=== PATIENT | male | born 1970 | race Caucasian/White ===

== ENCOUNTER 2019-07-07 00:55 | Emergency (ER) | payer OTHER, SELFPAY ==
[2019-07-07 00:55] VITALS: BP 139/79; PULSE 98; RESP 18; TEMP 36.7; O2SAT 98
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
[2019-07-07 06:42] VITALS: BP 102/64; PULSE 95; RESP 17; TEMP 36.7; O2SAT 96
== END 2019-07-07 06:45 | disposition home or self-care (01) ==
PROVIDERS: Emergency Provider Emergency Medicine; PCP Specialist/Technologist Athletic Trainer
DX: S00.81XA Abrasion of other part of head, initial encounter (principal); F10.120 Alcohol abuse with intoxication, uncomplicated; V48.5XXA Car driver injured in noncollision transport accident in traffic accident, initial encounter; F12.10 Cannabis abuse, uncomplicated
CPT/HCPCS: 99285; 99283

== ENCOUNTER 2021-11-03 07:24 | Emergency (ER) | payer BC, SELFPAY ==
[2021-11-03 07:29] VITALS: BP 182/73; PULSE 106; RESP 18; O2SAT 96
--- NOTE | 2021-11-03 08:02 | ED.GENADUL_ITS ---
Discharge Plan Disposition Patient Disposition: HOME Condition: Stable Discharge Details Clinical Impression: Weakness of proximal end of lower extremity, Paresthesia of both lower extremities Primary Care Provider: Lior Cruz ED Provider: Miranda Reynoso Home Meds and New Rx's Prescriptions: No Action No Known Home Meds 0RF Discharge Instructions Instructions: Paresthesia (ED), Lumbar Radiculopathy (ED) Additional Instructions: The MRI of your brain today showed no evidence of acute concerning findings. The MRI of your cervical spine and lower back noted degenerative changes or arthritis. There was very minimal disc bulge in your lower back but it is unclear if this is the source of your symptoms at this time. You have been placed on care management list to arrange for a follow-up appointment with the neurologist Dr. Leach within the next week for further evaluation and additional testing of your symptoms. Drink plenty of fluids and get plenty of rest. Return immediately to the emergency department if you develop any worsening or new concerning symptoms. Referrals: Bertha Leach MD [ [facility] STAFF PHYSICIAN] - Discharge Data Discharge Physician: Miranda Reynoso Medical Decision Making 0950 -- 51-year-old male with a history of daily alcohol abuse for many years presents with bilateral thigh weakness, numbness and feeling off balance for the past month. Blood pressure hypertensive. He is afebrile and otherwise nontoxic-appearing. Cranial nerves intact bilaterally. No perceived focal deficits. He does appear to have a mildly ataxic gait when ambulating. Neurovascularly intact. No midline spinal tenderness without evidence of cellulitis or trauma to back. No other cauda equina symptoms. History and presentation does not appear consistent with epidural abscess or cauda equina syndrome. Differential diagnosis includes MS, CVA, polymyositis, encephalopathy related to alcohol use, rheumatologic disease, inflammatory versus infectious process. We will place an IV, bolus IV fluids, screening labs, MRI brain and cervical spine. 1145 --MRI brain and cervical spine essentially unremarkable other than degenerative changes in the neck. Patient reassessed and no other acute changes. Discussed with radiology and agree with plan for MRI lumbar spine. Labs reviewed and unremarkable. Normal white blood cell count, electrolytes, ESR, CRP and CK. Discussed with Dr. Leach who agrees with plan for MRI lumbar spine and will follow up with patient in the office next week. He likely needs a nerve conduction study. No recommendations for steroids at this time as that can worsen myopathy. 1345 --lumbar spine MRI notes mild spinal stenosis at L4-5 with small disc bulge at L5-S1 but no other acute findings. Patient informed of results. He has no other acute complaints. Patient placed on care management list to arrange for a follow-up appointment with Dr. Leach within the next week. Advised to increase fluids and rest. Advised to follow up with the primary care doctor for re-evaluation. Usual and customary return precautions given prior to discharge. Medical Records Medical records reviewed: Yes I reviewed the patient's medical records. Imaging Data Radiologic Study: Radiologist's impression: MR BRAIN WO CLINICAL HISTORY:? proximal leg weakness/ataxia, r/o MS, cva TECHNIQUE:? Multiplanar multisequence MRI of the brain was performed. COMPARISON:? No exams were available for comparison FINDINGS: CEREBRAL PARENCHYMA: There is no evidence of intracranial hemorrhage, mass effect, or shift of midline structures.? There are no extra-axial fluid collections.? Ventricles are not enlarged or shifted. There is no significant focal signal abnormality in the cerebellar hemispheres nor within the олег, midbrain, and thalami. There is no abnormal signal abnormality in the periventricular white matter. There is no significant focal signal abnormality evident on diffusion imaging to suggest acute ischemic event. PITUITARY GLAND: No mass nor parasellar abnormality. No obvious abnormality in the cavernous sinuses. FLOW VOIDS: The expected flow void are noted. No evidence of obvious aneurysm nor obvious vascular malformation. PARANASAL SINUSES: There is prominent mucosal edema in the right maxillary sinus consistent with sinusitis.? Adjacent right-sided ethmoidal air cells are also opacified.? Left maxillary sinus is clear as are the remainder of the paranasal sinuses including the frontal sinuses.? ORBITS: No obvious findings. IMPRESSION: No significant intracranial findings on this noninfused MRI scan of the brain. Incidentally noted findings consistent with sinusitis in the right maxillary sinus. MR CERVICAL SPINE WO CLINICAL HISTORY:? proximal leg weakness/numbness/ataxia TECHNIQUE:? Multiplanar multisequence MRI of the cervical spine was performed without intravenous contrast. COMPARISON:? No exams were available for comparison FINDINGS: CERVICOMEDULLARY JUNCTION: Intact with no evidence of cerebellar tonsillar ectopia.? No obvious abnormality of the odontoid process.? No evidence of Chiari 1 malformation. CERVICAL SPINAL CORD: There is no abnormal signal in the cervical spinal cord and no evidence of focal cord atrophy nor focal cord swelling. OSSEOUS:There are no cervical fractures evident.? No significant osseous lesions in the cervical vertebrae.? Modic type 1 sub endplate marrow edema changes are noted at C5-6 level INDIVIDUAL LEVELS: C2-3: No disc herniation nor central canal stenosis.? No foraminal stenosis. No facet arthropathy. C3-4: There is moderate disc space narrowing at this level.? There is some posterior annular bulging.? Bilateral Luschka joint osteophytes are evident at this level.? There is posterolateral left disc protrusion at this level which slightly indents the thecal sac but not the spinal cord.? There is, however, left-sided foraminal stenosis at this level.? There is symmetric osteoarthritic degenerative changes in the left facet joints at this level.? Right facet joints appear unremarkable at this level. C4-5: Normal disc height and signal.? No evidence of disc herniation nor central canal stenosis at this level.? Also no significant foraminal stenosis.? Mild facet degenerative changes. C5-6: This level exhibits mild disc space narrowing.? Mild relatively symmetrical ower annular bulging without a dominant disc herniation.? Central canal dimensions are lower normal.? There are moderate degenerative changes in the facet joints.? Mild bilateral foraminal stenosis. C6-7: This level exhibits advanced disc space narrowing and anterior osseous lipping and bilateral Luschka joint osteophytes.? There is annular bulging but without a dominant disc herniation.? Mild central canal stenosis.? Mild left- sided foraminal stenosis, slightly more so on the right side.. C7-T1: Mild decreased disc height.? Very mild degenerative anterolisthesis of C7 upon T1 related to facet arthropathy.? Central canal dimensions are lower normal.? Significant facet arthropathymild bilateral foraminal stenosis Curvature of the cervical spine is maintained with no abnormal straightening or reversal of the curvature. IMPRESSION: 1. Multilevel degenerative findings as described above but without a dominant disc herniation, prominent central canal stenosis, nor abnormal signal within the cervical spinal cord. 2. There is an element of multilevel foraminal stenosis as described individually above. Lab Data Lab results reviewed: Yes I reviewed the patient's lab results. Labs: Laboratory Tests Range/Units 11/03/21 11/03/21 11/03/21 08:30 08:30 08:30 WBC (4.4-10.8) 10^3/uL 7.65 RBC (4.36-5.78) 10^6/uL 5.14 Hgb (13.5-17.5) g/dL 16.0 Hct (40.0-50.0) % 48.2 MCV (80-95) fL 94 MCH (27.0-33.0) pg 31.1 MCHC (32.0-36.0) % 33.2 RDW (11.8-14.1) % 13.5 Plt Count (130-400) 10^3/uL 315 MPV (8.0-11.0) fL 10.0 Immature Gran % 0.5 Neutrophils % 57.9 Lymphocytes % 28.6 Monocytes % 8.8 Eosinophils % 2.9 Basophils % 1.3 Nucleated RBC % (0.0-0.3) % 0.0 Absolute Neutrophils (1.2-6.7) 10^3/uL 4.43 Absolute Lymphocytes (1.2-3.4) 10^3/uL 2.19 Absolute Monocytes (0.1-0.8) 10^3/uL 0.67 Absolute Eosinophils (0.0-0.7) 10^3/uL 0.22 Absolute Basophils (0.0-0.2) 10^3/uL 0.10 ESR (0-20) mm/hr 10 Sodium (136-145) mmol/L 139 Potassium (3.5-5.1) mmol/L 4.3 Chloride (98-107) mmol/L 103 Carbon Dioxide (21.0-32.0) mmol/L 28.8 Anion Gap (3-11) mmol/L 7.2 BUN (7-18) mg/dL 9 Creatinine (0.70-1.30) mg/dL 0.9 Estimated GFR/1.73 m2 (mL/min/1.73m2) >= 60.00 Glucose (74-106) mg/dL 109 H Calcium (8.5-10.1) mg/dL 9.3 Total Bilirubin (0.2-1.0) mg/dL 0.5 AST (15-37) U/L 27 ALT (16-63) U/L 31 Alkaline Phosphatase (46-116) U/L 65 Creatine Kinase (39-308) U/L C-Reactive Protein (0.0-0.3) mg/dL 0.17 Total Protein (6.4-8.2) g/dL 8.0 Albumin (3.4-5.0) g/dL 3.8 Range/Units 11/03/21 08:30 WBC (4.4-10.8) 10^3/uL RBC (4.36-5.78) 10^6/uL Hgb (13.5-17.5) g/dL Hct (40.0-50.0) % MCV (80-95) fL MCH (27.0-33.0) pg MCHC (32.0-36.0) % RDW (11.8-14.1) % Plt Count (130-400) 10^3/uL MPV (8.0-11.0) fL Immature Gran % Neutrophils % Lymphocytes % Monocytes % Eosinophils % Basophils % Nucleated RBC % (0.0-0.3) % Absolute Neutrophils (1.2-6.7) 10^3/uL Absolute Lymphocytes (1.2-3.4) 10^3/uL Absolute Monocytes (0.1-0.8) 10^3/uL Absolute Eosinophils (0.0-0.7) 10^3/uL Absolute Basophils (0.0-0.2) 10^3/uL ESR (0-20) mm/hr Sodium (136-145) mmol/L Potassium (3.5-5.1) mmol/L Chloride (98-107) mmol/L Carbon Dioxide (21.0-32.0) mmol/L Anion Gap (3-11) mmol/L BUN (7-18) mg/dL Creatinine (0.70-1.30) mg/dL Estimated GFR/1.73 m2 (mL/min/1.73m2) Glucose (74-106) mg/dL Calcium (8.5-10.1) mg/dL Total Bilirubin (0.2-1.0) mg/dL AST (15-37) U/L ALT (16-63) U/L Alkaline Phosphatase (46-116) U/L Creatine Kinase (39-308) U/L 127 C-Reactive Protein (0.0-0.3) mg/dL Total Protein (6.4-8.2) g/dL Albumin (3.4-5.0) g/dL [facility] General Mode of arrival: ambulatory . Date/Time Provider Initiated Documentation: 11/03/21 07:25 . Limitations to Documentation: no limitations . Information obtained by: patient . HPI Narrative: Patient is a 51-year-old male with a history of daily alcohol abuse who presents with bilateral thigh weakness and numbness for the past month, getting progressively worse. He states he started with crampy side pain 1 month ago but this has since near resolved and now mainly has weakness and tingling and numbness in his thighs. He does admit to some lower back tightness but states he does not have significant pain. He started taking a CBD supplement 1 month ago. This may have been the source of the symptoms but stopped it 2 weeks ago without any relief. 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 He does drink at minimum 6 beers daily for the past 25+ years and states he had 6 beers and 2 shots of scotch yesterday. He does smoke marijuana. He denies any other alcohol or drug use. He denies fever, headache, dizziness, blurry vision, chest pain, shortness of breath, abdominal pain, nausea, vomiting, diarrhea, urinary symptoms, bowel or bladder incontinence, saddle anesthesia. Related Data Home Medications Medication Instructions Recorded Confirmed Unknown [No Known Home Meds] 07/07/19 07/07/19 Allergies Allergy/AdvReac Type Severity Reaction Status Date / Time No Known Allergies Allergy Unverified 11/03/21 07:32 General Stated Complaint: Nk/Back Pain KEVIN: 3 Review of Systems All systems reviewed & are unremarkable except as noted in HPI and below Constitutional Constitutional: Denies chills, Denies excessive sweating, Denies fatigue, Denies fever(s), Denies weakness and Denies weight loss Eyes Eyes: Reports system reviewed and no additional complaints, except as documented and Denies blurry vision ENT Ears, Nose, Mouth, and Throat: Denies vertigo, Denies dizziness, Denies otalgia, Denies nasal congestion, Denies sore throat and Denies throat swelling Cardiovascular Cardiovascular: Denies chest pain, Denies syncope, Denies rapid heart rate and Denies dyspnea Respiratory Respiratory: Denies chest congestion, Denies cough, Denies pain on inspiration and Denies dyspnea Gastrointestinal Gastrointestinal: Denies abdominal pain, Denies diarrhea and Denies vomiting Genitourinary Genitourinary: Denies hematuria, Denies dysuria and Denies flank pain Musculoskeletal Musculoskeletal: Reports back pain (lower back tightness), Denies joint swelling, Reports numbness and Reports tingling Integumentary/Breasts Skin/Breast: Denies lesions and Denies rash Neurologic Neurologic: Denies behavioral changes, Denies confusion, Denies vertigo, Denies dizziness, Denies syncope, Reports localized weakness, Reports numbness, Reports tingling and Denies weakness Psychiatric Psychiatric: Denies behavioral changes, Denies confusion and Denies depression Endocrine Endocrine: Denies excessive sweating and Denies fatigue Hematologic/Lymphatic Hematologic/Lymphatic: Denies easy bruising and Denies lymphadenopathy Allergic/Immunologic Allergic/Immunologic: Denies throat swelling PFSH All Active Problems (Updated 11/03/21 @ 13:57 by Miranda Reynoso DO) Weakness of proximal end of lower extremity (Acute) Paresthesia of both lower extremities (Acute) Medical History (Updated 11/03/21 @ 13:57 by Miranda Reynoso DO) No active medical problems Surgical History No significant past surgical history Social History Smoking/Tobacco Use Status: Current every day Tobacco Type: cigarettes Smoking risk assessment performed?: Yes Alcohol Intake: current Alcohol Intake frequency: 3 or more drinks per day Alcohol type: beer and hard liquor Drug use: Daily Substance use type: marijuana Do you feel safe at home: Yes Do you feel safe in your relationship?: Yes Exam Const General: cooperative and no acute distress Orientation: alert, awake and oriented x3 HENMT Head: normal to inspection Ears: hearing grossly normal bilaterally, external ears normal and TM's normal bilaterally General nose exam: external nose normal Face and sinus: normal facial exam Mouth: oral mucosae normal Teeth and gingiva: poor dentition Throat: posterior oropharynx normal Eyes General: appearance normal, both eyes and all related structures Eyelids: eyelids normal Pupils: PERRL EOM: EOM intact bilaterally Neck Neck: normal visual inspection Lymphatic: no lymphadenopathy noted Chest Chest: normal inspection of the chest Resp Effort & Inspection: normal respiratory effort and able to speak in complete sentences Auscultation: clear to auscultation bilaterally Cardio Rate: regular rate Rhythm: regular rhythm GI Inspection: normal to inspection Palpation: soft, not firm, no guarding, no hepatosplenomegaly, no masses and nontender Auscultation: normal bowel sounds Back/Spine/Pelvis Back: no CVA tenderness Thoracic/Lumbar Spine: thoracic and lumbar spine normal to inspection and No lumbar spinal tenderness Pelvis: no pain with anterior-posterior compression Skin General skin exam: no rashes or lesions noted Neuro General: patient alert, patient awake, patient oriented x3 and no meningeal signs Cranial Nerves: CN's II-XI intact bilaterally Cognition: normal cognition Speech: speech normal Gait: normal gait and ataxic (minimal) Motor: muscle tone normal throughout and strength 5/5 throughout Sensory Exam: no sensory deficits noted DTR's: Rt Patellar: 1+, Lt Patellar: 1+, Rt Ankle: 1+ and Lt Ankle: 1+ Plantar Reflexes: Equivocal: bilateral (negative babinski b/l ) Extrem General: normal to inspection, full ROM and capillary refill normal Other: b/l DP/PT pulses intact. Psych Appearance: grossly normal Mental Status: mental status grossly normal Speech and Movement: speech and movement normal Affect: normal affect Thought Process: normal Course Vital Signs Vital signs: Vital Signs Pulse 106 H 11/03/21 07:29 Respiratory Rate 18 11/03/21 07:29 Blood Pressure 182/73 H 11/03/21 07:29 Pulse Oximetry 96 11/03/21 07:29 Pulse 106 H 11/03/21 07:29 Respiratory Rate 18 11/03/21 07:29 Respiratory Effort Non-Labored 11/03/21 07:33 Blood Pressure 182/73 H 11/03/21 07:29 Blood Pressure Position Sitting 11/03/21 07:29 Pulse Oximetry 96 11/03/21 07:29 Oxygen Delivery Method Room Air 11/03/21 07:29 Oxygen Flow Rate 0 11/03/21 07:29 Pain Level 0 11/03/21 07:45 PAWSS Have you Been Recently Intoxicated or Drunk Within the Last 30 days?: Yes Have you Ever Experienced Previous Episodes of Alcohol Withdrawal?: No Have you ever Experienced Withdrawal Seizures?: No Have you ever Experienced Delirium Tremens(DT)s?: No Have you ever undergone Alcohol Rehabilitation Treatment (i.e, inpt ot outpatient treatment programs)?: No Have you ever Experienced Blackouts?: No Have you ever Combined Alcohol with other Downers within the last 90 days?: No Have you ever Combined Alcohol with any other Substance of Abuse during the last 90 days?: No Positive Blood Alcohol level on Presentation? [PCS.BAL]: No Evidence of Increased Autonomic Activity (i.e. HR>120, tremor, sweating, agitation, nausea)?: No Result: 1
--- NOTE | 2021-11-03 08:15 | DI.MRI_ITS ---
Exam(s) MR CERVICAL SPINE WO EXAM: MR CERVICAL SPINE WO CLINICAL HISTORY: proximal leg weakness/numbness/ataxia TECHNIQUE: Multiplanar multisequence MRI of the cervical spine was performed without intravenous con trast. COMPARISON: No exams were available for comparison FINDINGS: CERVICOMEDULLARY JUNCTION: Intact with no evidence of cerebellar tonsillar ectopia. No obvious abnor mality of the odontoid process. No evidence of Chiari 1 malformation. CERVICAL SPINAL CORD: There is no abnormal signal in the cervical spinal cord and no evidence of foca l cord atrophy nor focal cord swelling. OSSEOUS:There are no cervical fractures evident. No significant osseous lesions in the cervical vert ebrae. Modic type 1 sub endplate marrow edema changes are noted at C5-6 level INDIVIDUAL LEVELS: C2-3: No disc herniation nor central canal stenosis. No foraminal stenosis. No facet arthropathy. C3-4: There is moderate disc space narrowing at this level. There is some posterior annular bulging. Bilateral Luschka joint osteophytes are evident at this level. There is posterolateral left disc p rotrusion at this level which slightly indents the thecal sac but not the spinal cord. There is, how ever, left-sided foraminal stenosis at this level. There is symmetric osteoarthritic degenerative ch anges in the left facet joints at this level. Right facet joints appear unremarkable at this level. C4-5: Normal disc height and signal. No evidence of disc herniation nor central canal stenosis at th is level. Also no significant foraminal stenosis. Mild facet degenerative changes. C5-6: This level exhibits mild disc space narrowing. Mild relatively symmetrical ower annular bulgin g without a dominant disc herniation. Central canal dimensions are lower normal. There are moderate degenerative changes in the facet joints. Mild bilateral foraminal stenosis. C6-7: This level exhibits advanced disc space narrowing and anterior osseous lipping and bilateral Irlanda schka joint osteophytes. There is annular bulging but without a dominant disc herniation. Mild cent ral canal stenosis. Mild left-sided foraminal stenosis, slightly more so on the right side.. C7-T1: Mild decreased disc height. Very mild degenerative anterolisthesis of C7 upon T1 related to f acet arthropathy. Central canal dimensions are lower normal. Significant facet arthropathymild bila teral foraminal stenosis Curvature of the cervical spine is maintained with no abnormal straightening or reversal of the curva ture. IMPRESSION: 1. Multilevel degenerative findings as described above but without a dominant disc herniation, promin ent central canal stenosis, nor abnormal signal within the cervical spinal cord. 2. There is an element of multilevel foraminal stenosis as described individually above. Report called to ER provider DATA REPOSITORY:
--- NOTE | 2021-11-03 08:15 | DI.MRI_ITS ---
Exam(s) MR BRAIN WO EXAM: MR BRAIN WO CLINICAL HISTORY: proximal leg weakness/ataxia, r/o MS, cva TECHNIQUE: Multiplanar multisequence MRI of the brain was performed. COMPARISON: No exams were available for comparison FINDINGS: CEREBRAL PARENCHYMA: There is no evidence of intracranial hemorrhage, mass effect, or shift of midline structures. There are no extra-axial fluid collections. Ventricles are not enlarged or shifted. There is no significant focal signal abnormality in the cerebellar hemispheres nor within the олег, m idbrain, and thalami. There is no abnormal signal abnormality in the periventricular white matter. There is no significant focal signal abnormality evident on diffusion imaging to suggest acute ischem ic event. PITUITARY GLAND: No mass nor parasellar abnormality. No obvious abnormality in the cavernous sinuses. FLOW VOIDS: The expected flow void are noted. No evidence of obvious aneurysm nor obvious vascular ma lformation. PARANASAL SINUSES: There is prominent mucosal edema in the right maxillary sinus consistent with sinu sitis. Adjacent right-sided ethmoidal air cells are also opacified. Left maxillary sinus is clear a s are the remainder of the paranasal sinuses including the frontal sinuses. ORBITS: No obvious findings. IMPRESSION: No significant intracranial findings on this noninfused MRI scan of the brain. Incidentally noted findings consistent with sinusitis in the right maxillary sinus. DATA REPOSITORY:
[2021-11-03 08:35] LABS: ESR 10 mm/hr (0-20)
[2021-11-03 08:37] LABS: Abs Immature Grans 0.04 10^3/uL (0.0-0.06); Absolute Eosinophil Count 0.22 10^3/uL (0.0-0.7); Absolute Lymphocyte Count 2.19 10^3/uL (1.2-3.4); Absolute Monocyte Count 0.67 10^3/uL (0.1-0.8); Absolute Neutrophil Count 4.43 10^3/uL (1.2-6.7); Basophils % 1.3; Eosinophils % 2.9; HCT 48.2 % (40.0-50.0); Immature Grans % 0.5; Lymphocytes % 28.6; MCH 31.1 pg (27.0-33.0); MCHC 33.2 % (32.0-36.0); MCV 94 fL (80-95); Monocytes % 8.8; Neutrophils % 57.9; Platelet Count 315 10^3/uL (130-400); RBC 5.14 10^6/uL (4.36-5.78); RDW 13.5 % (11.8-14.1); RDW-SD 47.2 fL; WBC 7.65 10^3/uL (4.4-10.8)
[2021-11-03] MEDS: Normal Saline 1,000 ML 1000 ML IV (08:41)
[2021-11-03 08:56] LABS: ALT 31 U/L (16-63); AST 27 U/L (15-37); Albumin 3.8 g/dL (3.4-5.0); Alkaline Phosphatase 65 U/L (46-116); Anion Gap 7.2 mmol/L (3-11); BUN 9 mg/dL (7-18); Bilirubin, Total 0.5 mg/dL (0.2-1.0); C-Reactive Protein 0.17 mg/dL (0.0-0.3); CO2 28.8 mmol/L (21.0-32.0); CREATININE 0.9 mg/dL (0.70-1.30); Calcium 9.3 mg/dL (8.5-10.1); Chloride 103 mmol/L (98-107); Glucose 109 mg/dL (74-106); Potassium 4.3 mmol/L (3.5-5.1); Sodium 139 mmol/L (136-145)
[2021-11-03 09:46] VITALS: BP 141/72; PULSE 75; RESP 14; TEMP 37; O2SAT 98
[2021-11-03 11:40] VITALS: BP 158/70; PULSE 70; RESP 14; TEMP 37; O2SAT 100
--- NOTE | 2021-11-03 11:45 | DI.MRI_ITS ---
Exam(s) MR LUMBAR SPINE WO EXAM: MR LUMBAR SPINE WO CLINICAL HISTORY: lower back stiff,b/l thigh weak/numb, r/o lesions. TECHNIQUE: Multiplanar multisequence MRI of the Lumbar spine was performed. COMPARISON: No exams were available for comparison FINDINGS: There are no plain films available time this MRI interpretation. Therefore, 5 lumbar vertebral filomena s are presumed. Conus medullaris is at normal level. There is no evidence of conus mass nor subjacent clumping of in trathecal nerve roots to suggest arachnoiditis. The distal thecal sac appears unremarkable.There is no evidence of Tarlov intrasacral cysts nor other significant findings within the sacral canal Bones:There are no fractures nor ominous osseous lesions in the lumbar vertebral bodies and visualize d sacrum. With respect to the individual levels... T12-L1: Unremarkable L1-2: Normal disc height and signal. No disc herniation nor central canal stenosis.No foraminal steno sis L2-3: Normal disc height. There is mild annular bulging, slightly more prominent on the right side bu t no prominent disc herniation.No significant central canal stenosis. No significant foraminal steno sis.No facet arthropathy. L3-4: Normal disc height. There is a tiny focus of signal abnormality in the lateral right annulus c onsistent with small radial tear but there is no disc herniation evident this level nor foraminal sher nosis at this level. Central canal dimensions are lower normal. There is no foraminal stenosis.. N o significant facet arthropathy L4-5: Preserved disc height. Posteriorly there is subligamentous central annular bulging. This inde nts the thecal sac anteriorly. There is mild central canal stenosis. No foraminal stenosis. No fac et arthropathy. L5-S1: Relatively preserved disc height and signal. Mild annular bulging with small posterolateral r ight disc protrusion. No central canal stenosis. No foraminal stenosis on either side. Some degene rative changes noted in the left facet joint. Minimal degenerative change in the right facet joint. Soft tissues: paraspinal soft tissues appear unremarkable. IMPRESSION: 1. There is a small radial tear in the lateral right annulus at L3-4 level but no disc herniation at this level. 2. At L4-5 level there is posterior subligamentous annular bulging which indents the thecal sac anter iorly, resulting in mild central spinal canal stenosis at this level. 3. Small posterolateral right disc bulge at L5-S1 level. No central canal stenosis at this level nor foraminal stenosis on either side at this level. DATA REPOSITORY:
[2021-11-03 12:18] LABS: Creatine Kinase 127 U/L (39-308)
[2021-11-03 12:42] VITALS: BP 138/69; PULSE 74; RESP 14; TEMP 36.7; O2SAT 98
[2021-11-03 13:56] VITALS: BP 147/62; PULSE 77; RESP 14; TEMP 36.7; O2SAT 96
[2021-11-03 14:11] VITALS: BP 145/72; PULSE 79; RESP 16; TEMP 37; O2SAT 98
--- NOTE | 2021-11-03 14:52 | NUR.NOTE ---
Nursing Note: Referral faxed to [facility] Neurology for leg weakness, numbness, next week. Jeni Avalos
== END 2021-11-03 14:38 | disposition home or self-care (01) ==
PROVIDERS: Emergency Provider Physician Assistant; PCP Nurse Practitioner Family
DX: R20.2 Paresthesia of skin (principal); R53.1 Weakness; R27.8 Other lack of coordination; M54.50 Low back pain, unspecified
CPT/HCPCS: 80053; 82550; 85652; 96360; 99284; 70551; 72141; 72148; 85025; 86140

== ENCOUNTER 2021-11-05 20:05 | Outpatient (REF) | payer BC, SELFPAY ==
[2021-11-05 19:00] LABS: Hemoglobin A1C 5.8 % (<5.7)
[2021-11-05 19:25] LABS: Folate 15.2 ng/mL (8.6-20.0); TSH 2.06 uIU/mL (0.36-3.74); Vitamin B12 356 pg/mL (193-986)
== END 2021-11-05 20:06 | disposition home or self-care (01) ==
LOC: NCHCN 20:05
PROVIDERS: PCP Nurse Practitioner Family; Visit Provider Nurse Practitioner Family
DX: Z00.00 Encounter for general adult medical examination without abnormal findings (principal); Z13.1 Encounter for screening for diabetes mellitus; Z13.29 Encounter for screening for other suspected endocrine disorder; Z13.89 Encounter for screening for other disorder
CPT/HCPCS: 82607; 82746; 83036; 84443

== ENCOUNTER → 2022-01-07 02:14 | Outpatient (CLI) | payer BC, SELFPAY ==
--- NOTE | 2022-01-07 06:45 | DI.MRI_ITS ---
Exam(s) MR THORACIC SPINE WO EXAM: MR THORACIC SPINE WO CLINICAL HISTORY: ?thoracic myelopathy,WEAKNESS PROXIMAL END OF LOWER EXTREMITY,PARESTHESIA, TECHNIQUE: Multiplanar multisequence MRI of the thoracic spine was performed without intravenous con trast. COMPARISON: No exams were available for comparison FINDINGS: OSSEOUS: There are no acute appearing thoracic vertebral fractures. There are no ominous osseous les ions in the thoracic vertebrae. THORACIC SPINAL CORD: There is no abnormal signal in the cervical spinal cord and no evidence of foca l cord atrophy nor focal cord swelling. There is no evidence of syringomyelia nor significant spinal cord dysraphism. There is no evidence of mass at the conus medullaris. The position of the conus me dullaris is at normal level. There is no evidence of conus mass. SIGNIFICANT INDIVIDUAL LEVEL FINDINGS: There are no disc protrusions confirmed in both planes. No significant central canal stenosis. No s ignificant foraminal stenosis. PARASPINAL TISSUES: No significant masses nor fluid collections evident. IMPRESSION: 1. No fractures nor listhesis. 2. No significant disc herniations. 3. No central spinal canal stenosis nor foraminal stenosis. DATA REPOSITORY:
== END ==
PROVIDERS: PCP Nurse Practitioner Family; Visit Provider Psychiatry & Neurology Neurology
DX: R20.2 Paresthesia of skin (principal); R29.898 Other symptoms and signs involving the musculoskeletal system
CPT/HCPCS: 72146

== ENCOUNTER 2022-01-29 01:21 | Outpatient (CLI) | payer BC, SELFPAY ==
[2022-02-01 14:17] LABS: Albumin 56.4 % (55.8-66.1); Albumin g/dL 3.9 g/dL (3.6-5.2)
[2022-02-01 14:39] LABS: ANA Interpretation Negative (Negative)
[2022-02-01 19:14] LABS: Arsenic 1 ng/mL (<13); Cadmium 1.2 ng/mL (<5.0); Health Care Provider State VT; Mercury <1 ng/mL (<10); Patient State VT; Venous/Capillary Venous
[2022-02-02 10:04] LABS: Ceruloplasmin 27.4 mg/dL
[2022-02-02 12:20] LABS: Copper, Serum 111 mcg/dL (73-129)
[2022-02-02 21:39] LABS: Gliadin (Deamidated) Ab, IgA <10.0 U; Gliadin (Deamidated) Ab, IgG <10.0 U
[2022-02-03 10:55] LABS: Vitamin E, Serum 7.9 mg/L (5.5 - 17.0)
[2022-02-03 22:25] LABS: Thiamine (Vitamin B1), WB 144 nmol/L (70-180)
[2022-02-05 08:18] LABS: AGNA-1 Negative titer (<1:240); ANNA-1 Negative titer (<1:240); ANNA-2 Negative titer (<1:240); ANNA-3 Negative titer (<1:240); PCA-1 Negative titer (<1:240); PCA-2 Negative titer (<1:240); PCA-Tr Negative titer (<1:240)
== END 2022-01-29 01:22 | disposition home or self-care (01) ==
LOC: LBO 01:21
PROVIDERS: PCP Nurse Practitioner Family; Visit Provider Psychiatry & Neurology Neurology
DX: R27.0 Ataxia, unspecified (principal)
CPT/HCPCS: 36415; 82390; 82525; 83516; 86341; 82175; 82300; 83519; 83520; 83655; 83825; 84165; 84425; 84446; 86038; 86256

== ENCOUNTER → 2023-10-12 14:15 | Outpatient (CLI) | payer BC, SELFPAY ==
--- NOTE | 2023-10-12 | DI.RAD_ITS ---
Exam(s) XR CHEST 2V PA LATERAL EXAM: XR CHEST 2V PA LATERAL CLINICAL HISTORY: COUGH, R05.9. TECHNIQUE: 2D digital imaging was performed. COMPARISON: CR CHEST 2 VIEWS PA,LAT from 02/14/2015 FINDINGS: 2 views: Heart size is normal. The mediastinum is not widened. Bilateral hyperinflation. There is subtle increased markings in the lower right lung field when comp ared to the prior study and this probably represents mild infiltrate. There is a small right pleural effusion. In addition, on the lateral view there is a density located posteriorly overlying the vertebral filomena s which was not previously present, possibly significant. Recommend CT scan. IMPRESSION: Infiltrate noted in the right lung base and small right pleural effusion. Density posteriorly as seen on the lateral view which was not evident on the 2015 chest x-ray and may be significant. Recommend follow-up chest CT scan. DATA REPOSITORY: RADIATION DOSE DELIVERED:
== END ==
PROVIDERS: PCP Nurse Practitioner Family; Visit Provider Nurse Practitioner Family
DX: R05.8 Other specified cough (principal); R91.8 Other nonspecific abnormal finding of lung field; J90 Pleural effusion, not elsewhere classified; R93.89 Abnormal findings on diagnostic imaging of other specified body structures
CPT/HCPCS: 71046

== ENCOUNTER 2023-10-19 14:47 | Outpatient (REF) | payer BC, SELFPAY ==
[2023-10-19 20:00] LABS: Abs Immature Grans 0.02 10^3/uL (0.0-0.06); Absolute Eosinophil Count 0.25 10^3/uL (0.0-0.7); Absolute Lymphocyte Count 2.45 10^3/uL (1.2-3.4); Absolute Monocyte Count 0.82 10^3/uL (0.1-0.8); Absolute Neutrophil Count 4.77 10^3/uL (1.2-6.7); Basophils % 1.2; HCT 40.3 % (40.0-50.0); HGB 13.5 g/dL (13.5-17.5); Immature Grans % 0.2; Lymphocytes % 29.1; MCH 31.1 pg (27.0-33.0); MCHC 33.5 % (32.0-36.0); MCV 93 fL (80-95); MPV 9.7 fL (8.0-11.0); Monocytes % 9.8; Neutrophils % 56.7; Platelet Count 415 10^3/uL (130-400); RBC 4.34 10^6/uL (4.36-5.78); RDW 12.4 % (11.8-14.1); RDW-SD 42.7 fL; WBC 8.41 10^3/uL (4.4-10.8)
[2023-10-19 20:19] LABS: ALT 21 U/L (16-63); AST 16 U/L (15-37); Albumin 3.3 g/dL (3.4-5.0); Alkaline Phosphatase 109 U/L (46-116); Anion Gap 10.6 mmol/L (3-11); BUN 15 mg/dL (7-18); Bilirubin, Total 0.4 mg/dL (0.2-1.0); CO2 24.4 mmol/L (21.0-32.0); CREATININE 0.7 mg/dL (0.70-1.30); Calcium 9.2 mg/dL (8.5-10.1); Chloride 102 mmol/L (98-107); Estimated GFR 108.82 (mL/min/1.73m2); Glucose 101 mg/dL (74-106); Potassium 4.2 mmol/L (3.5-5.1); Sodium 137 mmol/L (136-145); Total Protein 7.3 g/dL (6.4-8.2)
== END 2023-10-19 14:48 | disposition home or self-care (01) ==
LOC: NCHCN 14:47
PROVIDERS: PCP Nurse Practitioner Family; Visit Provider Nurse Practitioner Family
DX: R91.8 Other nonspecific abnormal finding of lung field (principal)
CPT/HCPCS: 80053; 85025

== ENCOUNTER → 2023-10-24 04:36 | Outpatient (CLI) | payer BC, SELFPAY ==
[2023-10-24] MEDS: Barium Sulfate 2% W/V-Berry Smoothie 450 ML BTL PO ×2 (12:37→12:38)
[2023-10-24] MEDS: Normal Saline - Diluent 50 ML VIAL IJ (14:36)
[2023-10-24] MEDS: Normal Saline Flush 10 ML SYR IJ (14:38)
[2023-10-24] MEDS: Omnipaque 350 MG/ML 500 ML BTL-Imaging package 100 ML IJ (14:46)
--- NOTE | 2023-10-24 14:47 | DI.CT_ITS ---
Exam(s) CT CHEST/ABD/PEL W EXAM: CT CHEST/ABD/PEL W CLINICAL HISTORY: MASS RT LUNG,ABNL XR,R91.8 TECHNIQUE: Imaging Protocol: Axial computed tomography images with coronal and sagittal reformatted images were created and reviewed CONTRAST MATERIAL: Intravenous: Omnipaque 350 contrast volume:100 mL Oral: Yes COMPARISON: CR XR CHEST 2V PA LATERAL from 10/12/[address] CHEST WO from 10/18/2023 FINDINGS: The examination is limited due to patient motion artifact. CHEST: Tracheobronchial tree: Patent where visualized. Pulmonary parenchyma: Moderately severe centrilobular and paraseptal emphysematous changes are presen t. There is again seen a 3.1 x 5.2 cm mass in the right lower lobe. There is a 1.2 x 0.7 cm spicula luis antonio area in the left upper lobe. The left lower lobe 9 mm nodule is unchanged. There is again seen an opacity in the anterior aspect of the right lower lobe laterally. The smaller peripheral nodules are again seen in the lungs and appear stable. Visualized thyroid gland: Unremarkable. Mediastinum and Elina: Right hilar adenopathy is present. The esophagus is unremarkable. Pleura: There is a persistent right pleural effusion. There is a tiny left pleural effusion. Heart: The heart is not dilated. No coronary artery calcifications are seen. No pericardial effusion. Pulmonary arteries: No pulmonary emboli are identified. Aorta: Thoracic aorta non-dilated. No evidence of dissection. Atherosclerotic calcification is prese nt. Lymph nodes: No significant axillary adenopathy. Soft tissues: Unremarkable. Bones:Within normal limits for the patient's age. ABDOMEN: Liver: There is a 2.3 x 1.5 cm hypodense mass in the posterior segment of the right lobe of the liver suspicious for metastatic disease. There is a 7 mm hypodense lesion in the periphery of the right l obe of the liver more inferiorly which may represent a cyst. No other hepatic lesions are seen. The liver is normal in size. Portal, Superior Mesenteric, and Splenic Veins: Unremarkable. Gallbladder and Biliary Tract: No radiodense calculus or dilation. Pancreas: Normal density, no abnormal calcifications or inflammatory process. Spleen: Normal. Adrenals: No masses seen. Kidneys: Normal size, contour and axis. There is a nonobstructing stone in the left kidney measuring 3 mm. No masses seen. There is a circum aortic left renal vein. Abdominal Aorta: Abdominal portion non-dilated. Atherosclerotic calcification is present. Bowel: There is a moderate amount of stool throughout the colon suggesting constipation. There is no evidence of bowel obstruction or bowel wall thickening. No evidence of appendicitis. There is a sm all loop of small bowel in the right inguinal hernia. No evidence of obstruction/incarceration. The motion artifact limits evaluation of the stomach. Peritoneal Cavity: No ascites, collection or mesenteric inflammatory response. No free air. Lymph Nodes: Within normal limits. Bones: Within normal limits for the patient's age. No aggressive osseous lesions are seen. Soft Tissues: There is a left hydrocele in the scrotal sac. PELVIS: Bladder: Symmetric distention, no gross wall thickening. Reproductive Organs: Unremarkable as visualized. Lymph Nodes: Within normal limits. Bones: Within normal limits. IMPRESSION: 1. Again findings seen in the lung suspicious for primary bronchogenic carcinoma in the right lower l obe. The lungs are otherwise stable compared to the examination from 10/18/2023. There are pulmonary nodules and are pleural effusion present. 2. 2.3 x 1.5 cm hypodense lesion in the lower right lobe of the liver suspicious for metastatic disea se. 3. Incidental finding seen in the abdomen and pelvis as described above. RADIATION DOSE DELIVERED: 1,616.95mGy.cm Total DLP DATA REPOSITORY: All CT scans at this facility are submitted to the National Radiology Data Registry (NRDR) Dose Index Registry (DIR) with the [employer] (ACR). RADIATION OPTIMIZATION: All CT scans at this facility use at least one of these dose optimization te chniques: automated exposure control; mA and/or kV adjustment per patient size (includes targeted exa ms where dose is matched to clinical indication); or iterative reconstruction.
== END ==
PROVIDERS: PCP Nurse Practitioner Family; Visit Provider Nurse Practitioner Family
DX: C34.31 Malignant neoplasm of lower lobe, right bronchus or lung (principal)
CPT/HCPCS: 74177; 71260

== ENCOUNTER → 2023-12-16 01:22 | Outpatient (CLI) | payer BC, SELFPAY ==
--- NOTE | 2023-12-16 | DI.MRI_ITS ---
Exam(s) MR BRAIN WO/W EXAM: MR BRAIN WO/W CLINICAL HISTORY: RT LUNG CA,C34.31,SECONDARY NEOPLASM OF LIVER,C78.7,? METS, STAGING TECHNIQUE: Multiplanar multisequence MRI of the brain was performed. Both noninfused and contrast i nfused sequences were performed. IV Contrast injected was 13 cc Dotarem. COMPARISON: MR MR BRAIN WO from 11/03/2021 FINDINGS: CEREBRAL PARENCHYMA: There is a small ring-enhancing lesion in the upper left parietal lobe with some surrounding white matter edema, not previously present and suspicious for metastatic lesion. Anothe r similar peripherally enhancing small lesion is seen in the posterior right parietal lobe, also with some surrounding white matter edema. Another is seen in the right frontal lobe with some surroundin g edema there are no significant focal findings in the cerebellar hemispheres nor within the олег and midbrain. There also a few small foci of FLAIR bright signal abnormality which do not exhibit enhan cement or surrounding edema but which do exhibit restricted diffusion on DWI imaging. These may repr esent tiny ischemic lacunar infarcts or tiny metastatic lesions, not large enough to exhibit contrast enhancement and surrounding edema. Ventricles are not enlarged or shifted. There is no abnormal meningeal enhancement.. No evidence of microhemorrhages on SWI. PITUITARY GLAND: No mass nor parasellar abnormality. No obvious abnormality in the cavernous sinuses. FLOW VOIDS: The expected flow void are noted. No evidence of obvious aneurysm nor obvious vascular ma lformation. PARANASAL SINUSES: Mild mucosal thickening and small fluid level noted in the right maxillary sinus. This exhibits some improvement when compared to 11/03/2021. Left maxillary sinus is clear as are th e other paranasal sinuses. ORBITS: No obvious abnormal findings. IMPRESSION: 1. Compared to the prior MRI scan of November 2021 there are now a few small ring-enhancing lesions in bot h sides of the brain with some mild surrounding edema, consistent with metastatic lesions. There is no associated hemorrhage. 2. There are also a few other foci of signal abnormality, specifically tiny foci of restricted diffus ion which I suspect may be very early metastatic lesions, not evident on the prior study. 3. No evidence of intracranial hemorrhage. DATA REPOSITORY:
[2023-12-16] MEDS: Normal Saline Flush 10 ML SYR IVP (11:29)
[2023-12-16] MEDS: Gadoterate meglumine 20 ML SYRINGE 13 ML IVP (11:30)
== END ==
PROVIDERS: PCP Nurse Practitioner Family; Visit Provider Internal Medicine Medical Oncology
DX: C34.31 Malignant neoplasm of lower lobe, right bronchus or lung (principal); C78.7 Secondary malignant neoplasm of liver and intrahepatic bile duct
CPT/HCPCS: 70553

== ENCOUNTER 2024-01-11 02:22 | Outpatient (CLI) | payer BC, SELFPAY ==
[2024-01-11 08:21] LABS: Abs Immature Grans 0.05 10^3/uL (0.0-0.06); Absolute Basophil Count 0.12 10^3/uL (0.0-0.2); Absolute Eosinophil Count 0.54 10^3/uL (0.0-0.7); Absolute Lymphocyte Count 2.34 10^3/uL (1.2-3.4); Absolute Monocyte Count 1.05 10^3/uL (0.1-0.8); Basophils % 1.1 %; Eosinophils % 4.9 %; HCT 45.7 % (40.0-50.0); HGB 15.5 g/dL (13.5-17.5); Immature Grans % 0.4 %; MCH 30.7 pg (27.0-33.0); MCHC 33.9 % (32.0-36.0); MCV 91 fL (80-95); MPV 9.9 fL (8.0-11.0); Monocytes % 9.4 %; Neutrophils % 63.2 %; Platelet Count 351 10^3/uL (130-400); RBC 5.05 10^6/uL (4.36-5.78); RDW 13.4 % (11.8-14.1); RDW-SD 45.1 fL; WBC 11.12 10^3/uL (4.4-10.8)
[2024-01-11 08:22] LABS: Absolute Neutrophil Count 7.03 10^3/uL (1.2-6.7)
[2024-01-11 08:45] LABS: ALT 21 U/L (16-63); AST 21 U/L (15-37); Alkaline Phosphatase 222 U/L (46-116); BUN 13 mg/dL (7-18); Bilirubin, Total 0.44 mg/dL (0.2-1.0); CREATININE 0.8 mg/dL (0.70-1.30); Calcium 9.4 mg/dL (8.5-10.1); Chloride 100 mmol/L (98-107); Estimated GFR 104.51 (mL/min/1.73m2); FREE T4 1.12 ng/dL (0.76-1.46); Glucose 114 mg/dL (74-106); Magnesium 1.9 mg/dL (1.8-2.4); Potassium 4.4 mmol/L (3.5-5.1); Sodium 134 mmol/L (136-145); TSH 1.15 uIU/Ml (0.36-3.74); Total Protein 7.6 g/dL (6.4-8.2)
== END 2024-01-11 02:23 | disposition home or self-care (01) ==
LOC: LBO 02:22
PROVIDERS: PCP Nurse Practitioner Family; Visit Provider Internal Medicine Medical Oncology
DX: C78.7 Secondary malignant neoplasm of liver and intrahepatic bile duct (principal); C34.31 Malignant neoplasm of lower lobe, right bronchus or lung; C79.51 Secondary malignant neoplasm of bone; Z79.899 Other long term (current) drug therapy
CPT/HCPCS: 36415; 80053; 83735; 84439; 84443; 85025

== ENCOUNTER 2024-02-06 03:15 | Outpatient (CLI) | payer BC, SELFPAY ==
[2024-02-06 08:35] LABS: Abs Immature Grans 0.07 10^3/uL (0.0-0.06); Absolute Basophil Count 0.08 10^3/uL (0.0-0.2); Absolute Eosinophil Count 0.27 10^3/uL (0.0-0.7); Absolute Lymphocyte Count 1.73 10^3/uL (1.2-3.4); Absolute Monocyte Count 1.22 10^3/uL (0.1-0.8); Basophils % 0.8 %; Eosinophils % 2.6 %; HCT 42.4 % (40.0-50.0); Immature Grans % 0.7 %; Lymphocytes % 16.8 %; MCV 91 fL (80-95); MPV 9.5 fL (8.0-11.0); Monocytes % 11.9 %; Neutrophils % 67.2 %; Platelet Count 331 10^3/uL (130-400); RBC 4.66 10^6/uL (4.36-5.78); RDW 13.5 % (11.8-14.1); RDW-SD 45.4 fL; WBC 10.27 10^3/uL (4.4-10.8)
[2024-02-06 09:01] LABS: ALT 18 U/L (16-63); AST 18 U/L (15-37); Albumin 2.8 g/dL (3.4-5.0); Alkaline Phosphatase 371 U/L (46-116); Anion Gap 5.3 mmol/L (3-11); BUN 4 mg/dL (7-18); Bilirubin, Total 0.51 mg/dL (0.2-1.0); CO2 29.7 mmol/L (21.0-32.0); CREATININE 0.7 mg/dL (0.70-1.30); Calcium 9.3 mg/dL (8.5-10.1); Chloride 100 mmol/L (98-107); Estimated GFR 108.82 (mL/min/1.73m2); FREE T4 1.19 ng/dL (0.76-1.46); Glucose 145 mg/dL (74-106); Magnesium 1.9 mg/dL (1.8-2.4); Potassium 4.2 mmol/L (3.5-5.1); Sodium 135 mmol/L (136-145); TSH 1.34 uIU/Ml (0.36-3.74); Total Protein 7.1 g/dL (6.4-8.2)
== END 2024-02-06 03:16 | disposition home or self-care (01) ==
LOC: LBO 03:15
PROVIDERS: PCP Nurse Practitioner Family; Visit Provider Internal Medicine Medical Oncology
DX: C78.7 Secondary malignant neoplasm of liver and intrahepatic bile duct (principal); C34.31 Malignant neoplasm of lower lobe, right bronchus or lung; C79.51 Secondary malignant neoplasm of bone; Z79.899 Other long term (current) drug therapy
CPT/HCPCS: 36415; 80053; 83735; 84439; 84443; 85025

== ENCOUNTER 2024-02-27 03:05 | Outpatient (CLI) | payer BC, SELFPAY ==
[2024-02-27 08:33] LABS: HCT 33.8 % (40.0-50.0); HGB 11.3 g/dL (13.5-17.5); MCH 30.1 pg (27.0-33.0); MCHC 33.4 % (32.0-36.0); MCV 90 fL (80-95); MPV 9.4 fL (8.0-11.0); Platelet Count 462 10^3/uL (130-400); RBC 3.75 10^6/uL (4.36-5.78); RDW 14.2 % (11.8-14.1); RDW-SD 46.4 fL; WBC 14.88 10^3/uL (4.4-10.8)
[2024-02-27 08:47] LABS: Absolute Lymphocyte Count 1.49 10^3/uL (1.2-3.4); Absolute Monocyte Count 1.19 10^3/uL (0.1-0.8); Absolute Neutrophil Count 10.86 10^3/uL (1.2-6.7); Bands % 1 %; Metamyelocytes % 3
[2024-02-27 08:48] LABS: Diff Comment Manual Differential; Myelocytes % 2; RBC Morphology Normal
[2024-02-27 09:10] LABS: ALT 19 U/L (16-63); AST 20 U/L (15-37); Albumin 1.7 g/dL (3.4-5.0); Alkaline Phosphatase 262 U/L (46-116); Anion Gap 7.2 mmol/L (3-11); BUN 8 mg/dL (7-18); Bilirubin, Total 0.38 mg/dL (0.2-1.0); CO2 26.8 mmol/L (21.0-32.0); CREATININE 0.7 mg/dL (0.70-1.30); Calcium 8.6 mg/dL (8.5-10.1); Chloride 96 mmol/L (98-107); Estimated GFR 108.82 (mL/min/1.73m2); FREE T4 1.67 ng/dL (0.76-1.46); Glucose 109 mg/dL (74-106); Magnesium 1.8 mg/dL (1.8-2.4); Potassium 4.2 mmol/L (3.5-5.1); Sodium 130 mmol/L (136-145); TSH 1.97 uIU/Ml (0.36-3.74); Total Protein 6.5 g/dL (6.4-8.2)
== END 2024-02-27 03:06 | disposition home or self-care (01) ==
LOC: LBO 03:05
PROVIDERS: PCP Nurse Practitioner Family; Visit Provider Internal Medicine Medical Oncology
DX: C78.7 Secondary malignant neoplasm of liver and intrahepatic bile duct (principal); C34.31 Malignant neoplasm of lower lobe, right bronchus or lung; C79.51 Secondary malignant neoplasm of bone; Z79.899 Other long term (current) drug therapy
CPT/HCPCS: 36415; 80053; 83735; 84439; 84443; 85025

== ENCOUNTER 2024-03-26 13:14 | Outpatient (CLI) | payer BC, SELFPAY ==
[2024-03-26 12:39] LABS: Abs Immature Grans 0.21 10^3/uL (0.0-0.06); Absolute Basophil Count 0.03 10^3/uL (0.0-0.2); Absolute Lymphocyte Count 2.01 10^3/uL (1.2-3.4); Absolute Monocyte Count 0.97 10^3/uL (0.1-0.8); Basophils % 0.2 %; Eosinophils % 0.1 %; HCT 28.2 % (40.0-50.0); HGB 9.1 g/dL (13.5-17.5); Immature Grans % 1.4 %; Lymphocytes % 13.7 %; MCH 29.3 pg (27.0-33.0); MCHC 32.3 % (32.0-36.0); MCV 91 fL (80-95); MPV 9.1 fL (8.0-11.0); Monocytes % 6.6 %; Platelet Count 468 10^3/uL (130-400); RBC 3.11 10^6/uL (4.36-5.78); RDW-SD 55.4 fL
[2024-03-26 12:40] LABS: Absolute Eosinophil Count 0.01 10^3/uL (0.0-0.7); Absolute Neutrophil Count 11.47 10^3/uL (1.2-6.7)
[2024-03-26 13:10] LABS: ALT 15 U/L (16-63); AST 6 U/L (15-37); Alkaline Phosphatase 191 U/L (46-116); Anion Gap 10.1 mmol/L (3-11); BUN 18 mg/dL (7-18); Bilirubin, Total 0.25 mg/dL (0.2-1.0); CO2 26.9 mmol/L (21.0-32.0); CREATININE 0.8 mg/dL (0.70-1.30); Calcium 8.7 mg/dL (8.5-10.1); Chloride 99 mmol/L (98-107); Estimated GFR 104.51 (mL/min/1.73m2); FREE T4 1.25 ng/dL (0.76-1.46); Glucose 116 mg/dL (74-106); Magnesium 1.7 mg/dL (1.8-2.4); Potassium 4.4 mmol/L (3.5-5.1); Sodium 136 mmol/L (136-145); TSH 0.57 uIU/Ml (0.36-3.74); Total Protein 7.2 g/dL (6.4-8.2)
== END 2024-03-26 13:15 | disposition home or self-care (01) ==
LOC: LBO 13:15
PROVIDERS: PCP Nurse Practitioner Family; Visit Provider Internal Medicine Medical Oncology
DX: C78.7 Secondary malignant neoplasm of liver and intrahepatic bile duct (principal); C34.31 Malignant neoplasm of lower lobe, right bronchus or lung; C79.51 Secondary malignant neoplasm of bone; Z79.899 Other long term (current) drug therapy
CPT/HCPCS: 36415; 80053; 83735; 84439; 84443; 85025

== ENCOUNTER 2024-03-31 08:59 | Emergency (ER) | payer BC, SELFPAY ==
[2024-03-31] VITALS (11 sets, daily range): BP systolic 100–109; BP diastolic 48–61; PULSE 82–105; RESP 17–22; TEMP 36.3; O2SAT 96–100
--- NOTE | 2024-03-31 09:05 | W.ED.GENAD ---
Discharge Plan Disposition Patient Disposition: Home Discharge Details Clinical Impression: Anal abscess, Acute hyponatremia Primary Care Provider: Minna Elizalde ED Provider: Letty Stone Home Meds and New Rx's Prescriptions: New metronidazole 500 mg tablet 500 mg PO BID Qty: 14 0RF ciprofloxacin HCl 500 mg tablet 500 mg PO BID Qty: 14 0RF Continued Eliquis 5 mg tablet 5 mg PO BID Patient Comments: TAKE 2 TABLETS BY MOUTH TWICE DAILY FOR 7 DAYS THEN 1 TABLET TWICE DAILY FOR 23 DAYS folic acid 1 mg tablet 1 mg PO DAILY Patient Comments: TAKE ONE TABLET BY MOUTH EVERY DAY Discharge Instructions Additional Instructions: Follow-up with your primary care provider on Tuesday as scheduled. I recommend having your sodium rechecked at that time. Your CT scan was concerning for early anal abscess. I recommend that you follow-up with general surgery on Tuesday or Tuesday this week. A referral has been placed for you, but you are welcome to call them on Tuesday to schedule an appointment. Please take the antibiotics twice a day as prescribed. Do not take these within 1 hour of calcium containing foods. Otherwise there should be no interactions with medications that you are currently taking. I do recommend using probiotics, as this may decrease your risk of antibiotic associated diarrhea. Please use MiraLAX 1 capful daily to help maintain soft stools. You may continue to use the Colace as needed. Please sit in a tub filled with 2-3 inches of warm water with epsom salts for 15-20 minutes at a time at least twice a day for comfort- this is best done after a BM. Your sodium was low today, likely due to decreased food intake while drinking plenty of water. I recommend that you dri dailynk a bottle of Gatorlyte and start to eat gentle foods such as soups. Return to emergency care if you develop new severe abdominal pain, difficulty eating, worsening blood in stool, fever/chills, generalized weakness/malaise, or if you are very worried and need to be rechecked again immediately HPI General Date/Time Provider Initiated Documentation: 03/31/24 09:02. HPI Narrative: Greg is a 53-year-old male with history of EtOH use (now in remission), recently diagnosed PEs, metastatic right lower lobe lung cancer with mets to the spine, ribs, pelvis, liver, and adrenals, who presents to the emergency dept for evaluation of rectal bleeding with constipation and anorexia. He reports he started having constipation 4 days ago, no stool on Tuesday or . He did take a stool softener on , was able to have some firm small stools on Tuesday. He has noticed on and off swelling of his rectum since onset. Yesterday started having some anal leakage, today had pink blood on toilet paper when he wiped. Vomited x 1 yesterday, no blood in emesis. Admits to feeling occasionally lightheaded, no syncope. He denies fever/chills, chest pain, shortness of breath, palpitations, abdominal pain, change in urine output/dysuria. Does admit to slowed urine flow, says he has been meaning to talk to PCP about possible enlarged prostate. Anticoagulated with Eliquis. Tobacco user, 50+ year pack history. Has not had colonoscopy in the past, denies h/o abdominal surgeries or prior constipation. Physical exam remarkable for heme positive stool on rectal exam. Firm mass noted on anterior wall of rectum, ? enlarged prostate. No external hemorrhoids. Abdomen is soft, nondistended, nontender to palpation with hypoactive BS. Easy work of breathing. Normal heart sounds, mild tachycardia noted. D/dx includes but is not limited to: GI bleed, rectal abscess, bowel obstruction, stercoral colitis, diverticulitis, neoplasm I independently interpreted the following tests: CBC shows slight decrease in H+H from previous on 03/26/24 (9.1 to 8.5, 28.2 to 25.9). CMP notable for hyponatremia, sodium 127 (decrased from 136 on 03/26/24). PT and INR both slightly elevated above normal. Hypomagnesemia 1.7 unchanged from previous. I did review [facility] records, patient is currently being treated with Pembro, pemetrexed, and carboplatin for lung cancer with metastasis. CT scan remarkable for inflammation of anal wall with surrounding inflammatory changes, concern for perianal fistula versus infection of the anus. Discussed case with Dr. Ferrara, general surgeon. This is likely an early abscess, nothing to drain at this time. Hospitalization considered, however exam, labs, and VS are reassuring and pt is able to care for himself at home and is able to follow up on an outpatient baseis. He recommends abx (flagyl/cipro or augmentin), sitz baths and f/u with surgery or Tue for re-eval. As pt was recently treated for PNA with Amoxicillin, opted for Flagyl/Cipro. Reviewed discharge instructions with patient, including hyponatremia instructions And red flags indicating need for return to emergency care. He does have a PCP visit on Tuesday, recommend rechecking sodium at that time as this was likely due to decreased p.o. intake while drinking free water. Related Data Home Medications ?Medication ?Instructions ?Recorded ?Confirmed apixaban 5 mg tablet (Eliquis) 5 mg PO BID 03/31/24 03/31/24 ciprofloxacin HCl 500 mg tablet 500 mg PO BID #14 tabs 03/31/24 folic acid 1 mg tablet 1 mg PO DAILY 03/31/24 03/31/24 metronidazole 500 mg tablet 500 mg PO BID #14 tabs 03/31/24 Previous Rx's ?Medication ?Instructions ?Recorded ciprofloxacin HCl 500 mg tablet 500 mg PO BID #14 tabs 03/31/24 metronidazole 500 mg tablet 500 mg PO BID #14 tabs 03/31/24 Allergies Allergy/AdvReac Type Severity Reaction Status Date / Time No Known Allergies Allergy Unverified 03/31/24 09:07 General KEVIN: 3 Review of Systems Narrative: see HPI Exam Const General: cooperative, comfortable, no acute distress and frail appearing Nutritional Appearance: cachectic Orientation: alert and oriented x3 Resp Effort & Inspection: normal respiratory effort and able to speak in complete sentences Cardio Rate: tachycardic Rhythm: regular rhythm GI Inspection: normal to inspection, no abdominal wall ecchymosis and non-distended Palpation: soft, not firm, no guarding and nontender Auscultation: hypoactive bowel sounds Rectal Exam: visual inspection normal, normal sphincter tone, No fecal impaction, heme positive stool, No hemorrhoids, No laceration and prostate abnormal enlarged Medical Decision Making Quality:SDOH Health Related Social Needs: No Data to Display PFSH All Active Problems Acute hyponatremia (Acute) Anal abscess (Acute) Peripheral neuropathy (Acute) Ataxia (Acute) Alcohol abuse (Chronic) Medical History No active medical problems Surgical History No significant past surgical history Social History Smoking/Tobacco Use Status: Current every day Tobacco Type: cigarettes Smoking packs per day: 1.5 Smoking cigarettes per day: 30.0 Smoking risk assessment performed?: Yes Alcohol Intake: former Drug use: Daily Substance use type: marijuana Household members: none current occupation: Machin[employer] Do you feel safe at home: Yes Do you feel safe in your relationship?: Yes
--- NOTE | 2024-03-31 09:15 | DI.CT_ITS ---
Exam(s) CT ABDOMEN PELVIS W EXAM: CT ABDOMEN PELVIS W CLINICAL HISTORY: rectal bleed, constipation, Lung CA with mets TECHNIQUE: Imaging Protocol: Axial computed tomography images with coronal and sagittal reformatted images were created and reviewed. CONTRAST MATERIAL: Intravenous: Omnipaque 350 Contrast volume:85 mL Oral: No COMPARISON: CT CT CHEST/ABD/PEL W from 02/21/2024 FINDINGS: The examination is limited due to patient motion artifact. ABDOMEN: Lung Bases: There is a small left pleural effusion. There is a persistent small infiltrate in the ri ght lower lobe. Stable areas of peripheral nodularity are seen in the left lung base. Liver: Normal density. There are 2 tiny cysts seen within the liver. There is a persistent hypodense mass in the posterior segment of the right lobe of the liver. It appears slightly decreased in size compared to the prior examination measuring 1.2 x 2.1 cm compared to 2.6 x 2.1 cm. There is a persi stent area of decreased attenuation in the caudal aspect of the right lobe of the liver. Portal, Superior Mesenteric, and Splenic Veins: Unremarkable. Gallbladder and Biliary Tract: No radiodense calculus or dilation. Pancreas: Normal density, no abnormal calcifications or inflammatory process. Spleen: Normal. Adrenals: No masses seen. Kidneys: Normal size, contour and axis. Nonobstructing 2 mm left upper pole renal stone. No masses s een. Abdominal Aorta: Abdominal portion non-dilated. Atherosclerotic calcification is present. Bowel: No obstruction or bowel wall thickening. Appendix is unremarkable. Peritoneal Cavity: No ascites, collection or mesenteric inflammatory response. No free air. Lymph Nodes: Within normal limits. Bones: There is diffuse osseous metastatic disease present. Soft Tissues: Soft tissue thickening and edema seen in the perianal soft tissues. There are foci of gas seen in the soft tissues in the perianal region. Findings are suspicious for ulcer and or absces s. These findings are new compared to the prior examination. PELVIS: Bladder: Symmetric distention, no gross wall thickening. Reproductive Organs: Unremarkable as visualized. Lymph Nodes: Within normal limits. Bones: Within normal limits for the patient's age. IMPRESSION: 1. Since the prior examination, there is now soft tissue thickening and edema in the perianal soft ti ssues. There is a question of perianal fluid collection with gas internally suspicious for an absces s. Irregularity of the skin surface also raises a question of an ulceration. Please correlate with physical exam. 2. Interval decrease in size of the hepatic lesion since 02/21/2024. 3. Diffuse osseous metastatic disease. 4. Right lower lobe infiltrate. Small right pleural effusion. RADIATION DOSE DELIVERED: 274.4mGy.cm Total DLP DATA REPOSITORY: All CT scans at this facility are submitted to the National Radiology Data Registry (NRDR) Dose Index Registry (DIR) with the [employer] (ACR). RADIATION OPTIMIZATION: All CT scans at this facility use at least one of these dose optimization te chniques: automated exposure control; mA and/or kV adjustment per patient size (includes targeted exa ms where dose is matched to clinical indication); or iterative reconstruction.
[2024-03-31 09:51] LABS: HCT 25.9 % (40.0-50.0); HGB 8.5 g/dL (13.5-17.5); MCH 29.5 pg (27.0-33.0); MCHC 32.8 % (32.0-36.0); MCV 90 fL (80-95); MPV 9.1 fL (8.0-11.0); Platelet Count 336 10^3/uL (130-400); RBC 2.88 10^6/uL (4.36-5.78); WBC 9.23 10^3/uL (4.4-10.8)
[2024-03-31 10:09] LABS: INR 1.2 (0.9-1.1); PTT Activated 33.9 sec (23.6-32.8); Prothrombin Time 12.1 sec (9.1-11.1)
[2024-03-31 10:11] LABS: ALT 15 U/L (16-63); AST 14 U/L (15-37); Alkaline Phosphatase 181 U/L (46-116); Anion Gap 6.4 mmol/L (3-11); BUN 12 mg/dL (7-18); Bilirubin, Total 0.65 mg/dL (0.2-1.0); CO2 27.6 mmol/L (21.0-32.0); CREATININE 0.7 mg/dL (0.70-1.30); Chloride 93 mmol/L (98-107); Estimated GFR 108.82 (mL/min/1.73m2); Glucose 103 mg/dL (74-106); Magnesium 1.7 mg/dL (1.8-2.4); Potassium 3.5 mmol/L (3.5-5.1); Sodium 127 mmol/L (136-145); Total Protein 7.1 g/dL (6.4-8.2)
[2024-03-31 10:22] LABS: Absolute Eosinophil Count 0.18 10^3/uL (0.0-0.7); Absolute Lymphocyte Count 1.11 10^3/uL (1.2-3.4); Absolute Monocyte Count 0.28 10^3/uL (0.1-0.8); Absolute Neutrophil Count 7.48 10^3/uL (1.2-6.7); Bands % 1 %
[2024-03-31 10:23] LABS: Absolute Basophil Count 0.09 10^3/uL (0.0-0.2); Diff Comment Manual Differential; Hypochromasia 1+; Metamyelocytes % 1
[2024-03-31] MEDS: Normal Saline - Diluent 50 ML VIAL IJ (10:39)
[2024-03-31] MEDS: Omnipaque 350 MG/ML 100 ML BTL IJ (10:39)
[2024-03-31] MEDS: Normal Saline 500 ML 1000 ML IV (11:06)
--- NOTE | 2024-03-31 11:14 | DI.VRAD_ITS ---
PROCEDURE INFORMATION: Exam: CT Abdomen And Pelvis With Contrast Exam date and time: 03/31/2024 10:45 AM Age: 53 years old Clinical indication: Other: Rectal bleed, constipation, lung CA with mets TECHNIQUE: Imaging protocol: Computed tomography of the abdomen and pelvis with contrast. Radiation optimization: All CT scans at this facility use at least one of these dose optimization techniques: automated exposure control; mA and/or kV adjustment per patient size (includes targeted exams where dose is matched to clinical indication); or iterative reconstruction. Contrast material: OMNIPAQUE 350; Contrast volume: 85 ml; Contrast route: INTRAVENOUS (IV); COMPARISON: CT CHEST/ABD/PEL W 02/21/2024 10:51 AM FINDINGS: Lungs: Bronchiectatic changes in bilateral lower lobes. Right lower lobe ground-glass and tree-in-bud infiltrates. Pleural spaces: Small right pleural effusion. Liver: Decrease in the size of the hypodense liver lesion in the hepatic dome measuring 1.5 x 1.7 cm, previously 1.9 x 2.5 cm. No other hepatic lesion. Gallbladder and biliary ducts: Normal. No calcified stones. No ductal dilation. Pancreas: Normal. No ductal dilation. Spleen: Normal. No splenomegaly. Adrenal glands: Normal. No mass. Kidneys and ureters: Simple cyst in the upper pole of the right kidney measuring 5 mm. 2 mm nonobstructing stone in the upper pole of the left kidney. Hydronephrosis on either side. Stomach and bowel: Unremarkable. No obstruction. No mucosal thickening. Appendix: No evidence of appendicitis. Intraperitoneal space: Small amount of perihepatic fluid. Mild ascites. Vasculature: Vascular calcifications. Pelvic phleboliths. Lymph nodes: Unremarkable. No enlarged lymph nodes. Urinary bladder: Unremarkable as visualized. Reproductive: Unremarkable as visualized. Anus: There is thickening and inflammatory changes of the wall of the anus with surrounding collections containing pockets of air measuring to 1.5 x 0.7 cm on the left side.. Bones/joints: Multiple osseous sclerotic lesions, consistent with metastasis. Mild degenerative disease of the lumbar spine with multilevel posterior osteophyte disc complex causing mild bony canal stenosis. Mild degenerative of both hip joints. Soft tissues: Unremarkable. IMPRESSION: 1. Inflammation of the anal wall with surrounding inflammatory changes, that can be seen in cases of perianal fistula or infection of the anus. 2. Infiltrates in the right lower lobe, suggestive of pneumonia with associated small right pleural effusion. 3. Decrease in the hypodense hepatic lesion in the liver dome. 4. Mild ascites. Dictated and Authenticated by: Ricardo Rowley MD. Ordering:GURDEEP Saenz MD
[2024-03-31] MEDS: Ciprofloxacin 500 MG TAB PO (13:18)
[2024-03-31] MEDS: metroNIDAZOLE 500 MG TAB PO (13:18)
[2024-03-31] MEDS: metroNIDAZOLE 500 MG TAB, 3 TABS/BTL PO (13:19)
== END 2024-03-31 13:21 | disposition home or self-care (01) ==
PROVIDERS: Emergency Provider Nurse Practitioner Family; PCP Nurse Practitioner Family
DX: K59.00 Constipation, unspecified (principal); K61.0 Anal abscess; E87.1 Hypo-osmolality and hyponatremia; Z85.118 Personal history of other malignant neoplasm of bronchus and lung
CPT/HCPCS: 36415; 80053; 86850; 86900; 86901; 96360; 99285; 74177; 83735; 85025; 85610; 85730; 99284; J3490

== ENCOUNTER 2024-04-02 18:16 | Outpatient (REF) | payer BC, SELFPAY ==
[2024-04-02 19:20] LABS: Anion Gap 8.8 mmol/L (3-11); BUN 9 mg/dL (7-18); CO2 28.2 mmol/L (21.0-32.0); CREATININE 0.7 mg/dL (0.70-1.30); Calcium 8.8 mg/dL (8.5-10.1); Chloride 94 mmol/L (98-107); Estimated GFR 108.82 (mL/min/1.73m2); Glucose 115 mg/dL (74-106); Potassium 3.6 mmol/L (3.5-5.1); Sodium 131 mmol/L (136-145)
[2024-04-04 16:05] LABS: Vitamin B12 1583 pg/mL (193-986)
== END 2024-04-02 18:17 | disposition home or self-care (01) ==
LOC: NCHCN 18:16
PROVIDERS: PCP Nurse Practitioner Family; Visit Provider Nurse Practitioner Family
DX: E87.1 Hypo-osmolality and hyponatremia (principal); R39.198 Other difficulties with micturition
CPT/HCPCS: 80048; 82607; 84154

== ENCOUNTER 2024-04-03 14:52 | Outpatient (REF) | payer BC, SELFPAY ==
[2024-04-03 15:40] LABS: Bilirubin Negative (Negative); Blood Negative (Negative); Clarity Clear (Clear); Glucose Negative (Negative); Ketones Negative (Negative); Leukocyte Esterase Negative (Negative); Nitrite Negative (Negative); pH 6.5 (5-8)
== END 2024-04-03 14:53 | disposition home or self-care (01) ==
LOC: NCHCN 14:52
PROVIDERS: PCP Nurse Practitioner Family; Visit Provider Nurse Practitioner Family
DX: R39.198 Other difficulties with micturition (principal)
CPT/HCPCS: 81003

== ENCOUNTER 2024-04-16 09:51 | Outpatient (CLI) | payer BC, SELFPAY ==
[2024-04-16 09:38] LABS: Abs Immature Grans 0.36 10^3/uL (0.0-0.06); Absolute Basophil Count 0.07 10^3/uL (0.0-0.2); Absolute Eosinophil Count 0.25 10^3/uL (0.0-0.7); Absolute Lymphocyte Count 2.46 10^3/uL (1.2-3.4); Absolute Monocyte Count 1.18 10^3/uL (0.1-0.8); Basophils % 0.5 %; Eosinophils % 1.9 %; HCT 25.8 % (40.0-50.0); Immature Grans % 2.7 %; Lymphocytes % 18.8 %; MCH 29.2 pg (27.0-33.0); MCV 94 fL (80-95); MPV 8.8 fL (8.0-11.0); Neutrophils % 67.1 %; Platelet Count 579 10^3/uL (130-400); RBC 2.74 10^6/uL (4.36-5.78); RDW 18.3 % (11.8-14.1); RDW-SD 62.1 fL
[2024-04-16 09:40] LABS: Absolute Neutrophil Count 8.79 10^3/uL (1.2-6.7)
[2024-04-16 10:04] LABS: ALT 11 U/L (16-63); AST 14 U/L (15-37); Albumin 1.8 g/dL (3.4-5.0); Alkaline Phosphatase 149 U/L (46-116); Anion Gap 9.2 mmol/L (3-11); BUN 10 mg/dL (7-18); CO2 24.8 mmol/L (21.0-32.0); CREATININE 0.7 mg/dL (0.70-1.30); Calcium 8.6 mg/dL (8.5-10.1); Chloride 97 mmol/L (98-107); Estimated GFR 108.82 (mL/min/1.73m2); FREE T4 1.38 ng/dL (0.76-1.46); Glucose 99 mg/dL (74-106); Magnesium 1.6 mg/dL (1.8-2.4); Potassium 3.5 mmol/L (3.5-5.1); Sodium 131 mmol/L (136-145); TSH 1.69 uIU/mL (0.36-3.74); Total Protein 7.4 g/dL (6.4-8.2)
== END 2024-04-16 09:52 | disposition home or self-care (01) ==
LOC: LBO 09:52
PROVIDERS: PCP Nurse Practitioner Family; Visit Provider Internal Medicine Medical Oncology
DX: C78.7 Secondary malignant neoplasm of liver and intrahepatic bile duct (principal); C34.31 Malignant neoplasm of lower lobe, right bronchus or lung; C79.51 Secondary malignant neoplasm of bone; Z79.899 Other long term (current) drug therapy
CPT/HCPCS: 36415; 80053; 83735; 84439; 84443; 85025

== ENCOUNTER 2024-05-01 01:26 | Outpatient (CLI) | payer BC, MEDICAID, SELFPAY ==
--- NOTE | 2024-05-01 | DI.MRI_ITS ---
Exam(s) MR BRAIN WO/W EXAM: MR BRAIN WO/W CLINICAL HISTORY: PRIMARY LUNG CA,C34.31,SECONDARY CA OF LIVER AND BRAIN,C78.7,C79.31. TECHNIQUE: Multiplanar multisequence MRI of the brain was performed. CONTRAST MATERIAL: IV Contrast: 13 ML of Dotarem contrast administered. COMPARISON: MR MR BRAIN WO/W from 12/16/2023 FINDINGS: VENTRICLES AND EXTRA AXIAL SPACES: Normal in size and morphology for the patient's age. HEMORRHAGE: None. CEREBRAL PARENCHYMA: No focus of restricted diffusion to suggest acute infarct. Significant interval decrease in previously noted metastatic lesions in the high anterior right frontal lobe, high left pa rietal lobe and right parietal lobe. There is minimal small associated edema and no visible enhancem ent. BRAINSTEM/CEREBELLUM: Normal. CALVARIUM: Normal. ENHANCEMENT: No suspicious enhancement identified. VISUALIZED PARANASAL SINUSES/MASTOIDS: Mucous retention at the floor of the right maxillary sinus. Orbits: Unremarkable. Pituitary: Not enlarged. Vasculature: Normal flow voids. IMPRESSION: Unre significant interval decrease in size of metastatic lesions, now barely perceptible. DATA REPOSITORY:
[2024-05-01] MEDS: Normal Saline Flush 10 ML SYR IVP (12:18)
[2024-05-01] MEDS: Gadoterate meglumine 20 ML SYRINGE 13 ML IVP (12:19)
== END 2024-05-01 01:46 ==
PROVIDERS: PCP Nurse Practitioner Family; Visit Provider Internal Medicine Medical Oncology
DX: C34.31 Malignant neoplasm of lower lobe, right bronchus or lung (principal); C78.7 Secondary malignant neoplasm of liver and intrahepatic bile duct; C79.31 Secondary malignant neoplasm of brain
CPT/HCPCS: 70553

== ENCOUNTER 2024-05-07 03:09 | Outpatient (CLI) | payer BC, SELFPAY ==
[2024-05-07 10:40] LABS: Abs Immature Grans 0.08 10^3/uL (0.0-0.06); Absolute Basophil Count 0.06 10^3/uL (0.0-0.2); Absolute Eosinophil Count 0.32 10^3/uL (0.0-0.7); Absolute Lymphocyte Count 1.85 10^3/uL (1.2-3.4); Absolute Monocyte Count 0.81 10^3/uL (0.1-0.8); Absolute Neutrophil Count 8.17 10^3/uL (1.2-6.7); Basophils % 0.5 %; Eosinophils % 2.8 %; HGB 8.9 g/dL (13.5-17.5); Immature Grans % 0.7 %; Lymphocytes % 16.4 %; MCH 28.7 pg (27.0-33.0); MCHC 30.7 % (32.0-36.0); MCV 94 fL (80-95); MPV 8.3 fL (8.0-11.0); Monocytes % 7.2 %; Neutrophils % 72.4 %; Platelet Count 619 10^3/uL (130-400); RDW 17.6 % (11.8-14.1); RDW-SD 59.8 fL; WBC 11.28 10^3/uL (4.4-10.8)
[2024-05-07 11:04] LABS: ALT 10 U/L (16-63); AST 13 U/L (15-37); Albumin 2.1 g/dL (3.4-5.0); Alkaline Phosphatase 173 U/L (46-116); BUN 8 mg/dL (7-18); Bilirubin, Total 0.31 mg/dL (0.2-1.0); CO2 25.8 mmol/L (21.0-32.0); CREATININE 0.7 mg/dL (0.70-1.30); Calcium 9.3 mg/dL (8.5-10.1); Estimated GFR 108.82 (mL/min/1.73m2); FREE T4 1.27 ng/dL (0.76-1.46); Glucose 125 mg/dL (74-106); Magnesium 1.8 mg/dL (1.8-2.4); TSH 0.89 uIU/mL (0.36-3.74); Total Protein 8.3 g/dL (6.4-8.2)
[2024-05-07 11:08] LABS: Anion Gap 8.2 mmol/L (3-11); Chloride 97 mmol/L (98-107); Potassium 3.9 mmol/L (3.5-5.1); Sodium 131 mmol/L (136-145)
== END 2024-05-07 03:10 | disposition home or self-care (01) ==
LOC: LBO 03:09
PROVIDERS: PCP Nurse Practitioner Family; Visit Provider Internal Medicine Medical Oncology
DX: C78.7 Secondary malignant neoplasm of liver and intrahepatic bile duct (principal); C34.31 Malignant neoplasm of lower lobe, right bronchus or lung; C79.51 Secondary malignant neoplasm of bone; Z79.899 Other long term (current) drug therapy
CPT/HCPCS: 36415; 80053; 83735; 84439; 84443; 85025

== ENCOUNTER 2024-05-28 02:12 | Outpatient (CLI) | payer BC, SELFPAY ==
[2024-05-28 09:03] LABS: Abs Immature Grans 0.12 10^3/uL (0.0-0.06); Absolute Basophil Count 0.11 10^3/uL (0.0-0.2); Absolute Eosinophil Count 0.27 10^3/uL (0.0-0.7); Absolute Lymphocyte Count 1.85 10^3/uL (1.2-3.4); Absolute Monocyte Count 1.09 10^3/uL (0.1-0.8); Absolute Neutrophil Count 14.49 10^3/uL (1.2-6.7); Basophils % 0.6 %; Eosinophils % 1.5 %; HCT 27.2 % (40.0-50.0); HGB 8.1 g/dL (13.5-17.5); Immature Grans % 0.7 %; Lymphocytes % 10.3 %; MCH 26.8 pg (27.0-33.0); MCHC 29.8 % (32.0-36.0); MCV 90 fL (80-95); MPV 8.9 fL (8.0-11.0); Monocytes % 6.1 %; Neutrophils % 80.8 %; Platelet Count 633 10^3/uL (130-400); RBC 3.02 10^6/uL (4.36-5.78); RDW-SD 54.6 fL; WBC 17.93 10^3/uL (4.4-10.8)
[2024-05-28 09:41] LABS: Anisocytosis 1+; Diff Comment RBC Morph Reviewed; Hypochromasia 1+; Polychromasia Present
[2024-05-28 09:42] LABS: Poikilocytes 2+
[2024-05-28 09:54] LABS: ALT 8 U/L (16-63); AST 11 U/L (15-37); Alkaline Phosphatase 173 U/L (46-116); Anion Gap 9.6 mmol/L (3-11); BUN 16 mg/dL (7-18); Bilirubin, Total 0.18 mg/dL (0.2-1.0); CO2 25.4 mmol/L (21.0-32.0); Calcium 8.8 mg/dL (8.5-10.1); Chloride 103 mmol/L (98-107); Estimated GFR 88.88 (mL/min/1.73m2); FREE T4 1.13 ng/dL (0.76-1.46); Glucose 126 mg/dL (74-106); Magnesium 1.9 mg/dL (1.8-2.4); Sodium 138 mmol/L (136-145); TSH 0.91 uIU/mL (0.36-3.74); Total Protein 7.9 g/dL (6.4-8.2)
[2024-05-31 02:05] LABS: Voriconazole, S <0.1 mcg/mL (1.0 - 5.5)
== END 2024-05-28 02:13 | disposition home or self-care (01) ==
LOC: LBO 02:12
PROVIDERS: Student in an Organized Health Care Education/Training Program; PCP Nurse Practitioner Family; Visit Provider Internal Medicine Medical Oncology
DX: B44.1 Other pulmonary aspergillosis (principal); C78.7 Secondary malignant neoplasm of liver and intrahepatic bile duct; C34.31 Malignant neoplasm of lower lobe, right bronchus or lung; C79.51 Secondary malignant neoplasm of bone; Z79.899 Other long term (current) drug therapy
CPT/HCPCS: 36415; 80053; 80299; 83735; 84439; 84443; 85025

== ENCOUNTER 2024-06-05 02:30 | Outpatient (CLI) | payer BC, SELFPAY ==
[2024-06-07 23:13] LABS: Voriconazole, S 5.3 mcg/mL (1.0 - 5.5)
== END 2024-06-05 02:31 | disposition home or self-care (01) ==
LOC: LBO 02:30
PROVIDERS: PCP Nurse Practitioner Family; Visit Provider Student in an Organized Health Care Education/Training Program
DX: B44.1 Other pulmonary aspergillosis (principal)
CPT/HCPCS: 36415; 80053; 80299; 83735; 85025

== ENCOUNTER 2024-06-12 02:20 | Outpatient (CLI) | payer BC, SELFPAY ==
[2024-06-12 09:38] LABS: Abs Immature Grans 0.08 10^3/uL (0.0-0.06); Absolute Basophil Count 0.02 10^3/uL (0.0-0.2); Absolute Eosinophil Count 0.14 10^3/uL (0.0-0.7); Absolute Lymphocyte Count 1.73 10^3/uL (1.2-3.4); Absolute Monocyte Count 1.35 10^3/uL (0.1-0.8); Absolute Neutrophil Count 6.95 10^3/uL (1.2-6.7); Basophils % 0.2 %; Eosinophils % 1.4 %; HCT 23.2 % (40.0-50.0); Immature Grans % 0.8 %; Lymphocytes % 16.8 %; MCH 26.4 pg (27.0-33.0); MCHC 29.3 % (32.0-36.0); MCV 90 fL (80-95); MPV 9.5 fL (8.0-11.0); Monocytes % 13.1 %; Neutrophils % 67.7 %; Platelet Count 448 10^3/uL (130-400); RBC 2.58 10^6/uL (4.36-5.78); RDW 19.2 % (11.8-14.1); RDW-SD 60.4 fL; WBC 10.27 10^3/uL (4.4-10.8)
[2024-06-12 09:55] LABS: Anisocytosis 2+; Diff Comment RBC Morph Reviewed; HGB 6.8 g/dL (13.5-17.5); Hypochromasia 1+; Polychromasia Present
[2024-06-12 09:56] LABS: Poikilocytes 1+
[2024-06-12 09:58] LABS: ALT 15 U/L (16-63); AST 33 U/L (15-37); Albumin 1.7 g/dL (3.4-5.0); Alkaline Phosphatase 240 U/L (46-116); BUN 12 mg/dL (7-18); Bilirubin, Total 0.24 mg/dL (0.2-1.0); Calcium 8.3 mg/dL (8.5-10.1); Chloride 102 mmol/L (98-107); Estimated GFR 88.88 (mL/min/1.73m2); Glucose 123 mg/dL (74-106); Potassium 4.4 mmol/L (3.5-5.1); Sodium 136 mmol/L (136-145); Total Protein 7.6 g/dL (6.4-8.2)
[2024-06-14 23:12] LABS: Voriconazole, S 4.9 mcg/mL (1.0 - 5.5)
== END 2024-06-12 02:21 | disposition home or self-care (01) ==
LOC: LBO 02:20
PROVIDERS: PCP Nurse Practitioner Family; Visit Provider Student in an Organized Health Care Education/Training Program
DX: B44.1 Other pulmonary aspergillosis (principal)
CPT/HCPCS: 36415; 80053; 80299; 85025

== ENCOUNTER 2024-06-12 12:56 | Outpatient (RCR) | payer BC, SELFPAY ==
[2024-06-12] VITALS (11 sets, daily range): BP systolic 98–130; BP diastolic 56–71; PULSE 82–94; RESP 16–20; TEMP 36.1–37.6; O2SAT 96–99
[2024-06-12 13:29] LABS: Absolute Basophil Count 0.04 10^3/uL (0.0-0.2); Absolute Monocyte Count 1.41 10^3/uL (0.1-0.8); Basophils % 0.3 %; Eosinophils % 0.8 %; HCT 23.5 % (40.0-50.0); Immature Grans % 0.8 %; Lymphocytes % 19.3 %; MCH 26.2 pg (27.0-33.0); MCHC 29.4 % (32.0-36.0); MCV 89 fL (80-95); MPV 9.7 fL (8.0-11.0); Monocytes % 11.8 %; Platelet Count 512 10^3/uL (130-400); RBC 2.63 10^6/uL (4.36-5.78); RDW 19.2 % (11.8-14.1); RDW-SD 60.9 fL; WBC 11.93 10^3/uL (4.4-10.8)
[2024-06-12 13:30] LABS: Absolute Neutrophil Count 7.99 10^3/uL (1.2-6.7)
[2024-06-12 13:41] LABS: Iron 10 ug/dL (65-175); Total Iron Binding Capacity 102 ug/dL (250-450); Transferrin Sat 10 % (20-55)
[2024-06-12 13:42] LABS: HGB 6.9 g/dL (13.5-17.5)
[2024-06-12 13:43] LABS: Anisocytosis 2+; Diff Comment RBC Morph Reviewed; Hypochromasia 1+; Poikilocytes 1+; Polychromasia Present
[2024-06-12 14:10] LABS: Folate 18.4 ng/mL (8.6-20.0); Vitamin B12 1861 pg/mL (193-986)
[2024-06-12 14:12] LABS: Ferritin 1537 ng/mL (26-388)
[2024-06-12] MEDS: Normal Saline Flush 10 ML SYR IVP (14:40)
== END 2024-07-03 23:59 | disposition home or self-care (01) ==
LOC: INF 12:56
PROVIDERS: PCP Nurse Practitioner Family; Visit Provider Internal Medicine Medical Oncology
DX: C34.31 Malignant neoplasm of lower lobe, right bronchus or lung (principal)
CPT/HCPCS: 36430; 86850; 86900; 86901; 86920; 82607; 82728; 82746; 83540; 83550; 85025; P9016

== ENCOUNTER 2024-06-25 02:34 | Outpatient (CLI) | payer BC, SELFPAY ==
[2024-06-25 09:19] LABS: Abs Immature Grans 0.68 10^3/uL (0.0-0.06); Absolute Eosinophil Count 0.07 10^3/uL (0.0-0.7); Absolute Neutrophil Count 14.38 10^3/uL (1.2-6.7); Basophils % 0.4 %; Eosinophils % 0.4 %; HCT 30.9 % (40.0-50.0); HGB 9.5 g/dL (13.5-17.5); Immature Grans % 3.6 %; Lymphocytes % 11.9 %; MCHC 30.7 % (32.0-36.0); MCV 88 fL (80-95); Monocytes % 6.9 %; Neutrophils % 76.8 %; RBC 3.52 10^6/uL (4.36-5.78); RDW 19.4 % (11.8-14.1); RDW-SD 61.7 fL; WBC 18.73 10^3/uL (4.4-10.8)
[2024-06-25 09:42] LABS: ALT 10 U/L (16-63); AST 24 U/L (15-37); Albumin 1.5 g/dL (3.4-5.0); Alkaline Phosphatase 183 U/L (46-116); Anion Gap 8.9 mmol/L (3-11); BUN 5 mg/dL (7-18); Bilirubin, Total 0.33 mg/dL (0.2-1.0); CO2 26.1 mmol/L (21.0-32.0); CREATININE 0.9 mg/dL (0.70-1.30); Calcium 8.5 mg/dL (8.5-10.1); Chloride 101 mmol/L (98-107); Estimated GFR 100.24 (mL/min/1.73m2); Glucose 119 mg/dL (74-106); Potassium 3.4 mmol/L (3.5-5.1); Sodium 136 mmol/L (136-145); Total Protein 7.5 g/dL (6.4-8.2)
[2024-06-25 09:55] LABS: FREE T4 1.41 ng/dL (0.76-1.46); Magnesium 1.9 mg/dL (1.8-2.4); TSH 2.53 uIU/mL (0.36-3.74)
[2024-06-25 09:59] LABS: Absolute Basophil Count 0.07 10^3/uL (0.0-0.2); Absolute Lymphocyte Count 2.23 10^3/uL (1.2-3.4); Absolute Monocyte Count 1.29 10^3/uL (0.1-0.8)
[2024-06-25 10:03] LABS: Platelet Count 960 10^3/uL (130-400)
[2024-06-27 23:28] LABS: Voriconazole, S 2.8 mcg/mL (1.0 - 5.5)
== END 2024-06-25 02:35 | disposition home or self-care (01) ==
LOC: LBO 02:35
PROVIDERS: Student in an Organized Health Care Education/Training Program; PCP Nurse Practitioner Family; Visit Provider Internal Medicine Medical Oncology
DX: C78.7 Secondary malignant neoplasm of liver and intrahepatic bile duct (principal); C34.31 Malignant neoplasm of lower lobe, right bronchus or lung; C79.51 Secondary malignant neoplasm of bone; Z79.899 Other long term (current) drug therapy
CPT/HCPCS: 36415; 80053; 80299; 83735; 84439; 84443; 85025

== ENCOUNTER 2024-07-02 03:18 | Outpatient (CLI) | payer BC, SELFPAY ==
[2024-07-02 11:50] LABS: ALT 10 U/L (16-63); AST 21 U/L (15-37); Albumin 1.5 g/dL (3.4-5.0); Alkaline Phosphatase 171 U/L (46-116); Anion Gap 9.5 mmol/L (3-11); BUN 6 mg/dL (7-18); Bilirubin, Total 0.26 mg/dL (0.2-1.0); CO2 25.5 mmol/L (21.0-32.0); CREATININE 0.8 mg/dL (0.70-1.30); Calcium 8.5 mg/dL (8.5-10.1); Chloride 98 mmol/L (98-107); Estimated GFR 103.87 (mL/min/1.73m2); Glucose 99 mg/dL (74-106); Potassium 3.8 mmol/L (3.5-5.1); Sodium 133 mmol/L (136-145); Total Protein 7.1 g/dL (6.4-8.2)
[2024-07-02 12:18] LABS: Abs Immature Grans 0.16 10^3/uL (0.0-0.06); Absolute Basophil Count 0.07 10^3/uL (0.0-0.2); Absolute Eosinophil Count 0.07 10^3/uL (0.0-0.7); Absolute Monocyte Count 1.07 10^3/uL (0.1-0.8); Basophils % 0.5 %; Eosinophils % 0.5 %; HCT 26.5 % (40.0-50.0); HGB 7.9 g/dL (13.5-17.5); Immature Grans % 1.1 %; Lymphocytes % 17.6 %; MCH 26.7 pg (27.0-33.0); MCHC 29.8 % (32.0-36.0); MCV 90 fL (80-95); Monocytes % 7.4 %; Neutrophils % 72.9 %; RBC 2.96 10^6/uL (4.36-5.78); RDW 19.3 % (11.8-14.1); RDW-SD 62.4 fL
[2024-07-02 12:25] LABS: Absolute Lymphocyte Count 2.53 10^3/uL (1.2-3.4)
[2024-07-02 12:28] LABS: Platelet Count 944 10^3/uL (130-400)
[2024-07-02 12:36] LABS: FREE T4 1.43 ng/dL (0.76-1.46); Magnesium 1.9 mg/dL (1.8-2.4); TSH 1.71 uIU/mL (0.36-3.74)
[2024-07-02 13:43] LABS: Creatine Kinase 68 U/L (39-308)
[2024-07-04 22:31] LABS: Voriconazole, S 1.9 mcg/mL (1.0 - 5.5)
== END 2024-07-02 03:19 | disposition home or self-care (01) ==
PROVIDERS: Internal Medicine Medical Oncology; Nurse Practitioner Family; PCP Nurse Practitioner Family; Visit Provider Student in an Organized Health Care Education/Training Program
DX: B44.1 Other pulmonary aspergillosis (principal); C78.7 Secondary malignant neoplasm of liver and intrahepatic bile duct; C34.31 Malignant neoplasm of lower lobe, right bronchus or lung; C79.51 Secondary malignant neoplasm of bone; Z79.899 Other long term (current) drug therapy
CPT/HCPCS: 36415; 80053; 82550; 80299; 83735; 84439; 84443; 85025

== ENCOUNTER 2024-07-09 09:01 | Outpatient (CLI) | payer SELFPAY ==
[2024-07-09 09:52] LABS: ALT 44 U/L (16-63); AST 60 U/L (15-37); Albumin 1.8 g/dL (3.4-5.0); Alkaline Phosphatase 192 U/L (46-116); Anion Gap 6.4 mmol/L (3-11); BUN 6 mg/dL (7-18); Bilirubin, Total 0.33 mg/dL (0.2-1.0); CO2 26.6 mmol/L (21.0-32.0); CREATININE 0.7 mg/dL (0.70-1.30); Calcium 7.9 mg/dL (8.5-10.1); Chloride 101 mmol/L (98-107); Estimated GFR 108.14 (mL/min/1.73m2); Glucose 100 mg/dL (74-106); Sodium 134 mmol/L (136-145); Total Protein 7.2 g/dL (6.4-8.2)
[2024-07-11 23:06] LABS: Voriconazole, S 1.1 mcg/mL (1.0 - 5.5)
== END 2024-07-09 09:02 | disposition home or self-care (01) ==
LOC: LBO 09:01
PROVIDERS: PCP Nurse Practitioner Family; Visit Provider Student in an Organized Health Care Education/Training Program
DX: B44.1 Other pulmonary aspergillosis (principal)
CPT/HCPCS: 36415; 80053; 80299; 85025

== ENCOUNTER 2024-07-16 03:01 | Outpatient (CLI) | payer MEDICAID, SELFPAY ==
[2024-07-16 12:10] LABS: Abs Immature Grans 0.28 10^3/uL (0.0-0.06); Absolute Eosinophil Count 0.34 10^3/uL (0.0-0.7); Absolute Lymphocyte Count 1.98 10^3/uL (1.2-3.4); Absolute Neutrophil Count 11.57 10^3/uL (1.2-6.7); Basophils % 0.3 %; Eosinophils % 2.2 %; HCT 24.2 % (40.0-50.0); HGB 7.3 g/dL (13.5-17.5); Immature Grans % 1.8 %; MCH 27.2 pg (27.0-33.0); MCHC 30.2 % (32.0-36.0); MCV 90 fL (80-95); MPV 9.1 fL (8.0-11.0); Monocytes % 6.8 %; Neutrophils % 75.9 %; Platelet Count 402 10^3/uL (130-400); RBC 2.68 10^6/uL (4.36-5.78); RDW 22.5 % (11.8-14.1); RDW-SD 69.6 fL; WBC 15.24 10^3/uL (4.4-10.8)
[2024-07-16 12:12] LABS: Absolute Basophil Count 0.05 10^3/uL (0.0-0.2); Absolute Monocyte Count 1.04 10^3/uL (0.1-0.8)
[2024-07-16 12:26] LABS: Anisocytosis 2+; Diff Comment RBC Morph Reviewed
[2024-07-16 12:35] LABS: ALT 16 U/L (16-63); AST 19 U/L (15-37); Albumin 1.9 g/dL (3.4-5.0); Alkaline Phosphatase 208 U/L (46-116); BUN 9 mg/dL (7-18); CREATININE 0.7 mg/dL (0.70-1.30); Calcium 8.3 mg/dL (8.5-10.1); Chloride 100 mmol/L (98-107); Estimated GFR 108.14 (mL/min/1.73m2); FREE T4 1.25 ng/dL (0.76-1.46); Glucose 101 mg/dL (74-106); Magnesium 1.8 mg/dL (1.8-2.4); Potassium 3.7 mmol/L (3.5-5.1); Sodium 135 mmol/L (136-145); TSH 1.83 uIU/mL (0.36-3.74)
[2024-07-19 22:48] LABS: Voriconazole, S 1.1 mcg/mL (1.0 - 5.5)
== END 2024-07-16 03:02 | disposition home or self-care (01) ==
LOC: LBO 03:01
PROVIDERS: PCP Nurse Practitioner Family; Visit Provider Internal Medicine Medical Oncology
DX: C78.7 Secondary malignant neoplasm of liver and intrahepatic bile duct (principal); C34.31 Malignant neoplasm of lower lobe, right bronchus or lung; C79.51 Secondary malignant neoplasm of bone; B44.1 Other pulmonary aspergillosis; Z79.899 Other long term (current) drug therapy
CPT/HCPCS: 36415; 80053; 80299; 83735; 84439; 84443; 85025

== ENCOUNTER 2024-07-23 10:52 | Outpatient (CLI) | payer MEDICAID, SELFPAY ==
[2024-07-23 08:18] LABS: Abs Immature Grans 0.12 10^3/uL (0.0-0.06); Absolute Basophil Count 0.08 10^3/uL (0.0-0.2); Absolute Eosinophil Count 0.36 10^3/uL (0.0-0.7); Absolute Lymphocyte Count 2.23 10^3/uL (1.2-3.4); Absolute Neutrophil Count 9.35 10^3/uL (1.2-6.7); Basophils % 0.6 %; Eosinophils % 2.7 %; HCT 25.6 % (40.0-50.0); Immature Grans % 0.9 %; Lymphocytes % 16.6 %; MCH 27.6 pg (27.0-33.0); MCHC 30.1 % (32.0-36.0); MCV 92 fL (80-95); MPV 8.7 fL (8.0-11.0); Monocytes % 9.5 %; Neutrophils % 69.7 %; RBC 2.79 10^6/uL (4.36-5.78); RDW 22.5 % (11.8-14.1); RDW-SD 75.1 fL; WBC 13.42 10^3/uL (4.4-10.8)
[2024-07-23 08:19] LABS: Absolute Monocyte Count 1.27 10^3/uL (0.1-0.8)
[2024-07-23 08:30] LABS: HGB 7.7 g/dL (13.5-17.5)
[2024-07-23 08:31] LABS: Anisocytosis 2+; Diff Comment Diff Reviewed; Hypochromasia 2+; Platelet Count 721 10^3/uL (130-400); Poikilocytes 2+; Polychromasia Present
[2024-07-23 08:40] LABS: ALT 10 U/L (16-63); AST 18 U/L (15-37); Albumin 1.8 g/dL (3.4-5.0); Alkaline Phosphatase 158 U/L (46-116); BUN 10 mg/dL (7-18); Bilirubin, Total 0.19 mg/dL (0.2-1.0); CREATININE 0.8 mg/dL (0.70-1.30); Calcium 7.7 mg/dL (8.5-10.1); Chloride 102 mmol/L (98-107); Estimated GFR 103.87 (mL/min/1.73m2); Glucose 102 mg/dL (74-106); Magnesium 1.7 mg/dL (1.8-2.4); Potassium 3.8 mmol/L (3.5-5.1); Sodium 135 mmol/L (136-145)
[2024-07-23 09:28] LABS: FREE T4 1.25 ng/dL (0.76-1.46); TSH 1.67 uIU/mL (0.36-3.74)
== END 2024-07-23 10:53 | disposition home or self-care (01) ==
LOC: LBO 10:53
PROVIDERS: Student in an Organized Health Care Education/Training Program; PCP Nurse Practitioner Family; Visit Provider Internal Medicine Medical Oncology
DX: C78.7 Secondary malignant neoplasm of liver and intrahepatic bile duct (principal); C34.31 Malignant neoplasm of lower lobe, right bronchus or lung; C79.51 Secondary malignant neoplasm of bone; Z79.899 Other long term (current) drug therapy; B44.1 Other pulmonary aspergillosis
CPT/HCPCS: 36415; 80053; 80299; 83735; 84439; 84443; 85025

== ENCOUNTER 2024-07-30 02:52 | Outpatient (CLI) | payer MEDICAID, SELFPAY ==
[2024-07-30 10:53] LABS: HCT 25.7 % (40.0-50.0); HGB 7.6 g/dL (13.5-17.5); MCH 26.9 pg (27.0-33.0); MCHC 29.6 % (32.0-36.0); MCV 91 fL (80-95); MPV 8.1 fL (8.0-11.0); Platelet Count 409 10^3/uL (130-400); RBC 2.83 10^6/uL (4.36-5.78); RDW-SD 68.6 fL; WBC 3.55 10^3/uL (4.4-10.8)
[2024-07-30 11:07] LABS: Absolute Neutrophil Count 1.31 10^3/uL (1.2-6.7); Bands % 1 %
[2024-07-30 11:08] LABS: Absolute Basophil Count 0.07 10^3/uL (0.0-0.2); Absolute Eosinophil Count 0.11 10^3/uL (0.0-0.7); Absolute Lymphocyte Count 1.99 10^3/uL (1.2-3.4); Absolute Monocyte Count 0.07 10^3/uL (0.1-0.8); Anisocytosis 2+; Diff Comment Manual Differential
[2024-07-30 11:11] LABS: ALT 31 U/L (16-63); AST 33 U/L (15-37); Albumin 2.2 g/dL (3.4-5.0); Alkaline Phosphatase 179 U/L (46-116); Anion Gap 7.9 mmol/L (3-11); BUN 12 mg/dL (7-18); Bilirubin, Total 0.36 mg/dL (0.2-1.0); CO2 26.1 mmol/L (21.0-32.0); CREATININE 0.7 mg/dL (0.70-1.30); Calcium 8.6 mg/dL (8.5-10.1); Chloride 98 mmol/L (98-107); Estimated GFR 108.14 (mL/min/1.73m2); Glucose 100 mg/dL (74-106); Magnesium 1.9 mg/dL (1.8-2.4); Potassium 4.4 mmol/L (3.5-5.1); Sodium 132 mmol/L (136-145); Total Protein 8.6 g/dL (6.4-8.2)
[2024-08-02 00:53] LABS: Voriconazole, S <0.1 mcg/mL (1.0 - 5.5)
== END 2024-07-30 02:53 | disposition home or self-care (01) ==
LOC: LBO 02:52
PROVIDERS: Internal Medicine Medical Oncology; PCP Nurse Practitioner Family; Visit Provider Student in an Organized Health Care Education/Training Program
DX: B44.1 Other pulmonary aspergillosis (principal); C78.7 Secondary malignant neoplasm of liver and intrahepatic bile duct; C34.31 Malignant neoplasm of lower lobe, right bronchus or lung; C79.51 Secondary malignant neoplasm of bone
CPT/HCPCS: 36415; 80053; 80299; 83735; 84439; 84443; 85025

== ENCOUNTER 2024-08-06 02:17 | Outpatient (CLI) | payer MEDICAID, SELFPAY ==
[2024-08-06 12:22] LABS: ALT 16 U/L (16-63); AST 16 U/L (15-37); Albumin 2.1 g/dL (3.4-5.0); Alkaline Phosphatase 189 U/L (46-116); Anion Gap 8.6 mmol/L (3-11); BUN 12 mg/dL (7-18); Bilirubin, Total 0.28 mg/dL (0.2-1.0); CO2 25.4 mmol/L (21.0-32.0); CREATININE 0.7 mg/dL (0.70-1.30); Calcium 8.4 mg/dL (8.5-10.1); Chloride 98 mmol/L (98-107); Estimated GFR 108.14 (mL/min/1.73m2); Glucose 102 mg/dL (74-106); Potassium 4.3 mmol/L (3.5-5.1); Sodium 132 mmol/L (136-145); Total Protein 8.3 g/dL (6.4-8.2)
== END 2024-08-06 02:18 | disposition home or self-care (01) ==
PROVIDERS: PCP Nurse Practitioner Family; Visit Provider Internal Medicine Medical Oncology
DX: C78.7 Secondary malignant neoplasm of liver and intrahepatic bile duct (principal); C34.31 Malignant neoplasm of lower lobe, right bronchus or lung; C79.51 Secondary malignant neoplasm of bone
CPT/HCPCS: 36415; 80053

== ENCOUNTER 2024-08-20 11:52 | Outpatient (CLI) | payer MEDICAID, SELFPAY ==
[2024-08-20 08:13] LABS: Abs Immature Grans 0.28 10^3/uL (0.0-0.06); Absolute Eosinophil Count 0.23 10^3/uL (0.0-0.7); Absolute Lymphocyte Count 2.22 10^3/uL (1.2-3.4); Absolute Monocyte Count 1.24 10^3/uL (0.1-0.8); Basophils % 0.5 %; Eosinophils % 1.2 %; HCT 25.5 % (40.0-50.0); HGB 7.4 g/dL (13.5-17.5); Immature Grans % 1.4 %; Lymphocytes % 11.4 %; MCV 93 fL (80-95); Monocytes % 6.4 %; Neutrophils % 79.1 %; RBC 2.74 10^6/uL (4.36-5.78); RDW 19.4 % (11.8-14.1); RDW-SD 65.9 fL; WBC 19.45 10^3/uL (4.4-10.8)
[2024-08-20 08:16] LABS: Absolute Neutrophil Count 15.38 10^3/uL (1.2-6.7)
[2024-08-20 08:43] LABS: ALT 14 U/L (16-63); AST 14 U/L (15-37); Albumin 1.8 g/dL (3.4-5.0); Alkaline Phosphatase 170 U/L (46-116); Anion Gap 6.4 mmol/L (3-11); BUN 13 mg/dL (7-18); Bilirubin, Total 0.18 mg/dL (0.2-1.0); CO2 24.6 mmol/L (21.0-32.0); CREATININE 0.8 mg/dL (0.70-1.30); Calcium 8.4 mg/dL (8.5-10.1); Chloride 106 mmol/L (98-107); Estimated GFR 103.87 (mL/min/1.73m2); FREE T4 1.29 ng/dL (0.76-1.46); Glucose 102 mg/dL (74-106); Potassium 4.3 mmol/L (3.5-5.1); Sodium 137 mmol/L (136-145); TSH 1.35 uIU/mL (0.36-3.74); Total Protein 8.1 g/dL (6.4-8.2)
[2024-08-20 08:46] LABS: MPV 8.8 fL (8.0-11.0); Platelet Count 718 10^3/uL (130-400)
[2024-08-20 08:47] LABS: Diff Comment PLT Morph Reviewed
== END 2024-08-20 11:53 | disposition home or self-care (01) ==
PROVIDERS: PCP Nurse Practitioner Family; Visit Provider Internal Medicine Medical Oncology
DX: C78.7 Secondary malignant neoplasm of liver and intrahepatic bile duct (principal); C34.31 Malignant neoplasm of lower lobe, right bronchus or lung; C79.51 Secondary malignant neoplasm of bone; Z79.899 Other long term (current) drug therapy
CPT/HCPCS: 36415; 80053; 83735; 84439; 84443; 85025

== ENCOUNTER 2024-09-07 00:29 | Outpatient (CLI) | payer MEDICAID, SELFPAY ==
--- NOTE | 2024-09-07 | DI.CT_ITS ---
Exam(s) CT CHEST W EXAM: CT CHEST W CLINICAL HISTORY: Metastatic NSCLC with excellent response of osseous and hepatic mets,. TECHNIQUE: Multi planar reconstructions were performed. CONTRAST MATERIAL: Omnipaque 350; 75 cc COMPARISON: CT CT CHEST WO from 10/18/[address] CHEST/ABD/PEL W from 10/24/[address] ABDOMEN PELVIS W from 03/31/2024 FINDINGS: CHEST: LUNGS: There has been interval right sub total pneumonectomy. There is significant decrease in right hemithoracic volume and shift of midline structures including the heart towards the right side. An there is a large cavity in the right upper lobe region with internal debris. There is consolidation and cavitation in the lower right lung field with air bronchograms noted throughout this area. Also some cavitation although this does appear to be in the area where there was previously a large mass i n the right lower lobe which was most probably resected. There is collapse of the remaining right lo wer lobe.. There is also a fluid level within the collapsed right lower lobe. This may represent ab scess in the remaining lung. The opposite-left lung exhibits compensatory over inflation. There bullae in the apex. Mild benign- appearing increased markings are noted in lateral aspect of the left upper lobe. Remainder left uppe r lobe and lingular segment appear unremarkable. In the left lower lobe there is some multifocal mil d pleural thickening. There is also a nodular infiltrate again evident in the anterior basal region measuring approximately 1 point 2 by 0.7 cm. There is also a pleural based 1 cm density in the later al basal segment of the left lower lobe, slightly larger than previous. There is no pleural effusion on the left side. MEDIASTINUM: No left hilar adenopathy. The wall collapsed lung and infiltrate on the right side exte nt of the hilum making assessment for small lymph nodes difficult on the right side. There is no sub carinal adenopathy. There is no adenopathy in the anterior mediastinal fat. Visualized thyroid appe ars unremarkable. CARDIAC: Heart size upper normal. There is no obvious pericardial effusion.Caliber of the thoracic a paul is within normal limits. VISUALIZED UPPER ABDOMEN:No adrenal masses. OSSEOUS: There are multilevel sclerotic metastases in the thoracic and visualized upper vertebral bod ies. When compared to the prior CT scan of October 2023 these have significantly increased at multiple levels. There is a sclerotic metastatic lesion in the lateral aspect the left 4th rib also noted, n ot previously present also in the left 6th and 7th ribs and left 12th rib also sternal involvement ab ove and below the angle of Johnny but most predominant in the manubrium.. IMPRESSION: 1. Compared to the prior CT scan of 10/18/2023 there has been significant increase in size and number of metastatic osseous lesions in the vertebral bodies, sternum, and ribs. There are no fractures. 2. There has been interval right hemithoracic surgery. Although the previously described lower lobe mass is less evident, the appearance of the right hemithorax isz abnormal with collapsed remaining mendoza ng and cavities both superiorly and inferiorly. Correlation with surgical history recommended. Susp ect that there may be possible abscess in the remaining right lung tissue. 3. Small densities in the opposite-left lung noted. No left pleural effusion. RADIATION DOSE DELIVERED: 160.27mGy.cm Total DLP DATA REPOSITORY: All CT scans at this facility are submitted to the National Radiology Data Registry (NRDR) Dose Index Registry (DIR) with the [employer] (ACR). RADIATION OPTIMIZATION: All CT scans at this facility use at least one of these dose optimization te chniques: automated exposure control; mA and/or kV adjustment per patient size (includes targeted exa ms where dose is matched to clinical indication); or iterative reconstruction.
[2024-09-07] MEDS: Normal Saline - Diluent 50 ML VIAL IJ (12:33)
[2024-09-07] MEDS: Omnipaque 350 MG/ML 100 ML BTL 70 ML IJ (12:34)
== END 2024-09-07 00:49 ==
LOC: DI 00:30
PROVIDERS: PCP Nurse Practitioner Family; Visit Provider Internal Medicine Medical Oncology
DX: C34.31 Malignant neoplasm of lower lobe, right bronchus or lung (principal); C78.7 Secondary malignant neoplasm of liver and intrahepatic bile duct; C79.51 Secondary malignant neoplasm of bone
CPT/HCPCS: 71260; J3490

== ENCOUNTER 2024-09-10 04:16 | Outpatient (CLI) | payer MEDICAID, SELFPAY ==
[2024-09-10 10:36] LABS: Abs Immature Grans 0.14 10^3/uL (0.0-0.06); Absolute Eosinophil Count 0.32 10^3/uL (0.0-0.7); Absolute Lymphocyte Count 3.05 10^3/uL (1.2-3.4); Absolute Neutrophil Count 14.34 10^3/uL (1.2-6.7); Basophils % 0.5 %; Eosinophils % 1.7 %; HCT 36.9 % (40.0-50.0); HGB 10.9 g/dL (13.5-17.5); Immature Grans % 0.7 %; MCH 27.4 pg (27.0-33.0); MCHC 29.5 % (32.0-36.0); MCV 93 fL (80-95); MPV 8.7 fL (8.0-11.0); Monocytes % 5.8 %; Neutrophils % 75.3 %; Platelet Count 512 10^3/uL (130-400); RBC 3.98 10^6/uL (4.36-5.78); RDW 19.3 % (11.8-14.1); WBC 19.04 10^3/uL (4.4-10.8)
[2024-09-10 11:00] LABS: ALT 28 U/L (16-63); AST 16 U/L (15-37); Albumin 2.7 g/dL (3.4-5.0); Alkaline Phosphatase 134 U/L (46-116); Anion Gap 10.1 mmol/L (3-11); BUN 17 mg/dL (7-18); Bilirubin, Total 0.2 mg/dL (0.2-1.0); CO2 25.9 mmol/L (21.0-32.0); CREATININE 0.9 mg/dL (0.70-1.30); Calcium 9.2 mg/dL (8.5-10.1); Chloride 98 mmol/L (98-107); Estimated GFR 100.24 (mL/min/1.73m2); Glucose 102 mg/dL (74-106); Magnesium 1.9 mg/dL; Sodium 134 mmol/L (136-145); TSH 2.73 uIU/mL (0.36-3.74); Total Protein 8.8 g/dL (6.4-8.2)
[2024-09-10 18:27] LABS: T4, Free 1.3 ng/dL (0.8-2.2)
[2024-09-12 22:57] LABS: Voriconazole, S 1.2 mcg/mL (1.0 - 5.5)
== END 2024-09-10 04:17 | disposition home or self-care (01) ==
LOC: LBO 04:16
PROVIDERS: Student in an Organized Health Care Education/Training Program; PCP Nurse Practitioner Family; Visit Provider Internal Medicine Medical Oncology
DX: C78.7 Secondary malignant neoplasm of liver and intrahepatic bile duct (principal); C34.31 Malignant neoplasm of lower lobe, right bronchus or lung; C79.51 Secondary malignant neoplasm of bone; Z79.899 Other long term (current) drug therapy; B44.1 Other pulmonary aspergillosis
CPT/HCPCS: 36415; 80053; 80299; 83735; 84439; 84443; 85025

== ENCOUNTER 2024-09-24 02:51 | Outpatient (CLI) | payer MEDICAID, SELFPAY ==
[2024-09-24 10:40] LABS: Abs Immature Grans 0.12 10^3/uL (0.0-0.06); Absolute Lymphocyte Count 3.37 10^3/uL (1.2-3.4); Absolute Monocyte Count 0.85 10^3/uL (0.1-0.8); Basophils % 0.5 %; Eosinophils % 2.2 %; HCT 38.2 % (40.0-50.0); HGB 11.4 g/dL (13.5-17.5); Immature Grans % 0.7 %; Lymphocytes % 20.3 %; MCH 26.8 pg (27.0-33.0); MCHC 29.8 % (32.0-36.0); MCV 90 fL (80-95); MPV 9.1 fL (8.0-11.0); Monocytes % 5.1 %; Neutrophils % 71.2 %; Platelet Count 533 10^3/uL (130-400); RBC 4.26 10^6/uL (4.36-5.78); RDW 17.3 % (11.8-14.1); RDW-SD 57.3 fL; WBC 16.59 10^3/uL (4.4-10.8)
[2024-09-24 10:41] LABS: Absolute Basophil Count 0.08 10^3/uL (0.0-0.2); Absolute Eosinophil Count 0.36 10^3/uL (0.0-0.7); Absolute Neutrophil Count 11.81 10^3/uL (1.2-6.7)
[2024-09-24 11:22] LABS: ALT 15 U/L (16-63); AST 14 U/L (15-37); Albumin 2.8 g/dL (3.4-5.0); Alkaline Phosphatase 174 U/L (46-116); Anion Gap 10.1 mmol/L (3-11); BUN 18 mg/dL (7-18); Bilirubin, Total 0.2 mg/dL (0.2-1.0); CO2 25.9 mmol/L (21.0-32.0); CREATININE 0.9 mg/dL (0.70-1.30); Calcium 9.2 mg/dL (8.5-10.1); Chloride 102 mmol/L (98-107); Estimated GFR 100.24 (mL/min/1.73m2); Glucose 86 mg/dL (74-106); Potassium 4.2 mmol/L (3.5-5.1); Sodium 138 mmol/L (136-145); TSH 1.34 uIU/mL (0.36-3.74)
[2024-09-24 19:24] LABS: T4, Free 1.7 ng/dL (0.8-2.2)
== END 2024-09-24 02:52 | disposition home or self-care (01) ==
LOC: LBO 02:51
PROVIDERS: PCP Nurse Practitioner Family; Visit Provider Internal Medicine Medical Oncology
DX: C78.7 Secondary malignant neoplasm of liver and intrahepatic bile duct (principal); C34.31 Malignant neoplasm of lower lobe, right bronchus or lung; C79.51 Secondary malignant neoplasm of bone; Z79.899 Other long term (current) drug therapy
CPT/HCPCS: 36415; 80053; 83735; 84439; 84443; 85025

== ENCOUNTER 2024-10-16 02:04 | Outpatient (CLI) | payer MEDICAID, SELFPAY ==
--- NOTE | 2024-10-16 | DI.MRI_ITS ---
Exam(s) MR BRAIN WO/W EXAM: MR BRAIN WO/W CLINICAL HISTORY: Secondary malignant neoplasm of brain, C79.31; primary malignant neoplasm. TECHNIQUE: Multiplanar multisequence MRI of the brain was performed. CONTRAST MATERIAL: IV Contrast: 14 ML of Dotarem contrast administered. COMPARISON: MR MR BRAIN WO/W from 12/16/2023 MR MR BRAIN WO/W from 05/01/2024 FINDINGS: VENTRICLES AND EXTRA AXIAL SPACES: Normal in size and morphology for the patient's age. HEMORRHAGE: None. CEREBRAL PARENCHYMA: No focus of restricted diffusion to suggest acute infarct. Small area of high si gnal again noted in a posterior left frontal/parietal gyrus. No associated enhancement. No addition al lesions are identified. BRAINSTEM/CEREBELLUM: Normal. CALVARIUM: Normal. ENHANCEMENT: No suspicious enhancement identified. VISUALIZED PARANASAL SINUSES/MASTOIDS: Mild mucosal thickening. Orbits: Unremarkable. Pituitary: Not enlarged. Vasculature: Normal flow voids. IMPRESSION: Small focus of high signal seen superiorly in a high left frontal parietal gyrus in area of previousl y noted metastatic lesion. There is no abnormal surrounding enhancement on the current exam. No add itional lesions are identified. DATA REPOSITORY:
[2024-10-16] MEDS: Gadoterate meglumine 20 ML SYRINGE 14 ML IVP (10:11)
[2024-10-16] MEDS: Normal Saline Flush 10 ML SYR IVP (10:11)
== END 2024-10-16 02:24 ==
LOC: DI 02:04
PROVIDERS: PCP Nurse Practitioner Family; Visit Provider Internal Medicine Medical Oncology
DX: C79.31 Secondary malignant neoplasm of brain (principal)
CPT/HCPCS: 70553

== ENCOUNTER 2024-10-23 09:46 | Outpatient (CLI) | payer MEDICAID, SELFPAY ==
[2024-10-23 09:33] LABS: Abs Immature Grans 0.23 10^3/uL (0.0-0.06); Absolute Lymphocyte Count 3.32 10^3/uL (1.2-3.4); Basophils % 0.5 %; Eosinophils % 0.7 %; Immature Grans % 1.2 %; Lymphocytes % 16.8 %; MCH 26.3 pg (27.0-33.0); MCHC 30.8 % (32.0-36.0); MCV 85 fL (80-95); MPV 9.1 fL (8.0-11.0); Monocytes % 6.3 %; Neutrophils % 74.5 %; RBC 4.57 10^6/uL (4.36-5.78); RDW 17.2 % (11.8-14.1); RDW-SD 53.4 fL; WBC 19.77 10^3/uL (4.4-10.8)
[2024-10-23 09:36] LABS: Absolute Eosinophil Count 0.14 10^3/uL (0.0-0.7); Absolute Monocyte Count 1.25 10^3/uL (0.1-0.8); Absolute Neutrophil Count 14.73 10^3/uL (1.2-6.7)
[2024-10-23 09:53] LABS: Diff Comment PLT Morph Reviewed; Platelet Count 661 10^3/uL (130-400); RBC Morphology Normal
[2024-10-23 09:57] LABS: ALT 22 U/L (16-63); AST 12 U/L (15-37); Albumin 2.6 g/dL (3.4-5.0); Alkaline Phosphatase 171 U/L (46-116); Anion Gap 6.5 mmol/L (3-11); BUN 14 mg/dL (7-18); Bilirubin, Total 0.3 mg/dL (0.2-1.0); CO2 27.5 mmol/L (21.0-32.0); Calcium 9.6 mg/dL (8.5-10.1); Chloride 100 mmol/L (98-107); Estimated GFR 88.33 (mL/min/1.73m2); FREE T4 1.17 ng/dL (0.76-1.46); Glucose 109 mg/dL (74-106); Magnesium 1.8 mg/dL (1.8-2.4); Potassium 4.3 mmol/L (3.5-5.1); Sodium 134 mmol/L (136-145); TSH 1.89 uIU/mL (0.36-3.74)
== END 2024-10-23 09:47 | disposition home or self-care (01) ==
PROVIDERS: PCP Nurse Practitioner Family; Visit Provider Internal Medicine Medical Oncology
DX: C78.7 Secondary malignant neoplasm of liver and intrahepatic bile duct (principal); C34.31 Malignant neoplasm of lower lobe, right bronchus or lung; C79.51 Secondary malignant neoplasm of bone; Z79.899 Other long term (current) drug therapy
CPT/HCPCS: 36415; 80053; 83735; 84439; 84443; 85025

== ENCOUNTER 2024-11-01 02:42 | Outpatient (CLI) | payer MEDICAID, SELFPAY ==
--- NOTE | 2024-11-01 | DI.CT_ITS ---
Exam(s) CT CHEST/ABD/PEL W EXAM: CT CHEST/ABD/PEL W CLINICAL HISTORY: Stage IV lung CA with liver/bone mets, C34.31, C79.51, C78.7; secondary TECHNIQUE: Imaging Protocol: Axial computed tomography images with coronal and sagittal reformatted images were created and reviewed. Lung Computer Aided Detection (CAD) was utilized. CONTRAST MATERIAL: Intravenous: Omnipaque 350 contrast volume:100 mL Oral: Yes COMPARISON: CT CT ABDOMEN PELVIS W from 03/31/[address] CHEST W from 09/07/2024 FINDINGS: CHEST: Tracheobronchial tree: Patent where visualized. There is again seen bronchiectasis in the right hemit horax. Pulmonary parenchyma: There is again seen marked volume loss in the right hemithorax with shift of th e mediastinum to the right. Emphysematous changes are seen in the lungs. There are several ground-gla ss small nodule seen in the left lung. This may be infectious/inflammatory or metastatic. There are n ew ground-glass infiltrates in the left lower lobe. There are pulmonary nodule seen in the lung bases not apparent on the prior examination. There is again seen a large cavity in the right lung and comp ressive atelectatic changes on the involving the right lower lobe. There is an area of aeration in th e lung base medially in the right hemithorax. This is new compared to the prior examination. Bronchie ctatic changes are seen in the right hemithorax. Overall, the appearance of the right hemithorax is s imilar apart from a new area of aeration in the medial aspect of the right lung base. Visualized thyroid gland: Unremarkable. Mediastinum and Elina: No dominant adenopathy or fluid collection. The esophagus is unremarkable. Pleura: There is no left pleural effusion or left pneumothorax. Heart: The heart is not dilated. Coronary artery calcification is present. No pericardial effusion. Pulmonary arteries: No pulmonary emboli are identified. Aorta: Thoracic aorta non-dilated. There is no evidence of dissection. Atherosclerotic calcification is present. Lymph nodes: Within normal limits. Soft tissues: Unremarkable. Bones:There is diffuse osseous metastatic disease. No acute compression fractures are present. ABDOMEN: Liver: Normal density. There again seen several tiny round well-circumscribed hypodensities in the li julio cesar which are likely reflect cysts. There has been interval increase in size in the mass in the poste rior segment of the right lobe of the liver. It measures 3.7 cm transverse by 3 cm AP this compares t o 1.2 x 2.1 cm on the prior examination. The ill-defined area of decreased attenuation in the caudal aspect of the liver is unchanged. No new hepatic masses are seen. Portal, Superior Mesenteric, and Splenic Veins: Unremarkable. Gallbladder and Biliary Tract: No radiodense calculus or dilation. Pancreas: Normal density, no abnormal calcifications or inflammatory process. Spleen: Normal. Adrenals: No masses seen. Kidneys: Normal size, contour and axis. There is a 2 mm nonobstructing stone in the superior pole of the left kidney. There are few tiny hypodensities in the kidneys. They are too small for further nikky acterization but likely reflect small cysts. No follow-up is recommended. Abdominal Aorta: Abdominal portion non-dilated. Atherosclerotic calcification is present. Bowel: No obstruction or bowel wall thickening. Appendix is unremarkable. Incidental note is made of a entero entero intussusception in the left lower quadrant measuring 2.5 cm in length. Peritoneal Cavity: There is a trace amount of ascites in the pelvis. No free air. Lymph Nodes: Within normal limits. Bones: There is diffuse sclerotic metastatic disease. Soft Tissues: Unremarkable. PELVIS: Bladder: Symmetric distention, no gross wall thickening. Reproductive Organs: Mildly enlarged prostate gland. Lymph Nodes: Within normal limits. Bones: Within normal limits. IMPRESSION: 1. Interval increase in size of the right hepatic mass suspicious for metastasis. 2. Diffuse sclerotic osseous metastatic disease. 3. No acute abdominal or pelvic process. 4. Stable appearance of the right hemithorax. 5. New ground-glass nodules in the left lung suspicious for metastasis. 6. Ground-glass opacities in the left lower lobe which may represent an infectious/inflammatory proce ss. RADIATION DOSE DELIVERED: 673.71mGy.cm Total DLP DATA REPOSITORY: All CT scans at this facility are submitted to the National Radiology Data Registry (NRDR) Dose Index Registry (DIR) with the [employer] (ACR). RADIATION OPTIMIZATION: All CT scans at this facility use at least one of these dose optimization te chniques: automated exposure control; mA and/or kV adjustment per patient size (includes targeted exa ms where dose is matched to clinical indication); or iterative reconstruction.
[2024-11-01] MEDS: Barium Sulfate 2% W/V-Berry Smoothie 450 ML BTL PO ×2 (11:33→11:34)
[2024-11-01] MEDS: Omnipaque 350 MG/ML 500 ML BTL-Imaging package IJ (12:52)
[2024-11-01] MEDS: Normal Saline - Diluent 50 ML VIAL IJ (12:52)
== END 2024-11-01 03:02 ==
PROVIDERS: PCP Nurse Practitioner Family; Visit Provider Nurse Practitioner Family
DX: C34.31 Malignant neoplasm of lower lobe, right bronchus or lung (principal); C79.51 Secondary malignant neoplasm of bone; C78.7 Secondary malignant neoplasm of liver and intrahepatic bile duct
CPT/HCPCS: 74177; 71260

== ENCOUNTER 2024-11-06 10:58 | Outpatient (CLI) | payer MEDICAID, SELFPAY ==
[2024-11-06 11:06] LABS: HCT 35.2 % (40.0-50.0); Lymphocytes % 15.9 %; MCHC 31.3 % (32.0-36.0); MCV 83 fL (80-95); Neutrophils % 76.1 %; Platelet Count 606 10^3/uL (130-400); RBC 4.23 10^6/uL (4.36-5.78); RDW 16.4 % (11.8-14.1); RDW-SD 50.1 fL; WBC 20.99 10^3/uL (4.4-10.8)
[2024-11-06 11:07] LABS: Abs Immature Grans 0.18 10^3/uL (0.0-0.06); Absolute Basophil Count 0.06 10^3/uL (0.0-0.2); Absolute Eosinophil Count 0.29 10^3/uL (0.0-0.7); Absolute Lymphocyte Count 3.34 10^3/uL (1.2-3.4); Absolute Monocyte Count 1.13 10^3/uL (0.1-0.8); Absolute Neutrophil Count 15.97 10^3/uL (1.2-6.7); Basophils % 0.3 %; Eosinophils % 1.4 %; Immature Grans % 0.9 %; Monocytes % 5.4 %
[2024-11-06 11:45] LABS: ALT 12 U/L (16-63); AST 14 U/L (15-37); Albumin 2.5 g/dL (3.4-5.0); Alkaline Phosphatase 199 U/L (46-116); Anion Gap 6.6 mmol/L (3-11); BUN 16 mg/dL (7-18); Bilirubin, Total 0.2 mg/dL (0.2-1.0); CO2 27.4 mmol/L (21.0-32.0); CREATININE 0.9 mg/dL (0.70-1.30); Calcium 9.1 mg/dL (8.5-10.1); Chloride 101 mmol/L (98-107); Estimated GFR 100.24 (mL/min/1.73m2); FREE T4 1.11 ng/dL (0.76-1.46); Glucose 86 mg/dL (74-106); Magnesium 1.9 mg/dL (1.8-2.4); Potassium 4.5 mmol/L (3.5-5.1); Sodium 135 mmol/L (136-145); TSH 3.37 uIU/mL (0.36-3.74); Total Protein 7.6 g/dL (6.4-8.2)
== END 2024-11-06 10:59 | disposition home or self-care (01) ==
LOC: LBO 10:59
PROVIDERS: PCP Nurse Practitioner Family; Visit Provider Internal Medicine Medical Oncology
DX: C78.7 Secondary malignant neoplasm of liver and intrahepatic bile duct (principal); C34.31 Malignant neoplasm of lower lobe, right bronchus or lung; C79.51 Secondary malignant neoplasm of bone; Z79.899 Other long term (current) drug therapy
CPT/HCPCS: 36415; 80053; 83735; 84439; 84443; 85025

== ENCOUNTER 2024-11-27 02:39 | Outpatient (CLI) | payer MEDICAID, SELFPAY ==
[2024-11-27 12:33] LABS: Abs Immature Grans 0.22 10^3/uL (0.0-0.06); Absolute Basophil Count 0.07 10^3/uL (0.0-0.2); Absolute Lymphocyte Count 2.77 10^3/uL (1.2-3.4); Absolute Monocyte Count 1.14 10^3/uL (0.1-0.8); Basophils % 0.5 %; Eosinophils % 2.2 %; HCT 32.8 % (40.0-50.0); HGB 10.1 g/dL (13.5-17.5); Immature Grans % 1.6 %; Lymphocytes % 20.6 %; MCH 25.7 pg (27.0-33.0); MCHC 30.8 % (32.0-36.0); MCV 84 fL (80-95); MPV 8.7 fL (8.0-11.0); Monocytes % 8.5 %; Neutrophils % 66.6 %; RBC 3.93 10^6/uL (4.36-5.78); RDW 17.4 % (11.8-14.1); RDW-SD 52.8 fL; WBC 13.47 10^3/uL (4.4-10.8)
[2024-11-27 12:42] LABS: Absolute Neutrophil Count 8.97 10^3/uL (1.2-6.7)
[2024-11-27 13:03] LABS: ALT 13 U/L (16-63); AST 12 U/L (15-37); Albumin 2.5 g/dL (3.4-5.0); Alkaline Phosphatase 211 U/L (46-116); Anion Gap 7.1 mmol/L (3-11); BUN 17 mg/dL (7-18); Bilirubin, Total 0.3 mg/dL (0.2-1.0); CO2 26.9 mmol/L (21.0-32.0); Calcium 9.2 mg/dL (8.5-10.1); Chloride 102 mmol/L (98-107); Estimated GFR 88.33 (mL/min/1.73m2); FREE T4 1.19 ng/dL (0.76-1.46); Glucose 100 mg/dL (74-106); Magnesium 1.7 mg/dL (1.8-2.4); Potassium 4.2 mmol/L (3.5-5.1); Sodium 136 mmol/L (136-145); TSH 0.87 uIU/mL (0.36-3.74); Total Protein 7.5 g/dL (6.4-8.2)
[2024-11-27 13:16] LABS: Diff Comment Diff Reviewed; Platelet Count 729 10^3/uL (130-400); RBC Morphology Normal
== END 2024-11-27 02:40 | disposition home or self-care (01) ==
LOC: LBO 02:39
PROVIDERS: PCP Nurse Practitioner Family; Visit Provider Internal Medicine Medical Oncology
DX: C78.7 Secondary malignant neoplasm of liver and intrahepatic bile duct (principal); C34.31 Malignant neoplasm of lower lobe, right bronchus or lung; C79.51 Secondary malignant neoplasm of bone; Z79.899 Other long term (current) drug therapy
CPT/HCPCS: 36415; 80053; 83735; 84439; 84443; 85025

== ENCOUNTER 2024-12-11 01:37 | Outpatient (CLI) | payer MEDICAID, SELFPAY ==
--- NOTE | 2024-12-11 | DI.CT_ITS ---
Exam(s) CT CHEST/ABD/PEL W EXAM: CT CHEST/ABD/PEL W CLINICAL HISTORY: primary malignant neoplasm RLL lung, C34.31, mets to bone, C79.51, mets to. TECHNIQUE: Imaging Protocol: Axial computed tomography images with coronal and sagittal reformatted images were created and reviewed CONTRAST MATERIAL: Intravenous: Omnipaque 350 Contrast volume:100 ml Oral: None COMPARISON: CT CT CHEST WO from 10/18/[address] CHEST W from 09/07/[address] CHEST/ABD/PEL W from 11/01/2024 FINDINGS: CHEST: LUNGS: Again noted is evidence of partial right pneumonectomy. The appearance of the right hemithora x is similar to the study of 09/07/2024 with cavitation superiorly and consolidated lung more inferio rly although there does appear to be some increased aeration in the remaining right lower lobe. Ther e is no evidence of obvious recurrence of the large malignant mass which was present in the right low er lobe on CT scan of October 2023. The opposite-left lung the again exhibits compensatory hyperinflation and extends across the midline anteriorly in compensatory fashion. There is again noted a nodular density in the anterior basal seg ment of the left lower lobe measuring 10 by 6 mm, unchanged. There is no pleural effusion. No new g round-glass infiltrates.. MEDIASTINUM: No new hilar nor mediastinal adenopathy. Visualized thyroid unremarkable. CARDIAC: Heart size is normal. There is no pericardial effusion.Caliber of thoracic aorta within nor mal limits. Incidentally noted is independent origin of the left vertebral artery off the aortic arc h. OSSEOUS: Multiple sclerotic metastases are again noted. These involve the sternum (mostly right side of the sternum), and multiple vertebral bodies, similar to the previous study.Also multilevel bilate ral sclerotic rib involvement is again noted.. ABDOMEN: There is no ascites. No new mesenteric masses. No obvious bowel obstruction. LIVER: The lesion in the medial aspect of the right hepatic lobe appears slightly smaller than previo us. Towards the lateral aspect of the right hepatic lobe there is a subcapsular cyst again noted, un changed. There are no new focal hepatic lesions. No significantly dilated intrahepatic ducts. GALLBLADDER/BILIARY: No obvious gallbladder pathology. CBD is not dilated. PANCREAS: No evidence of pancreatic mass nor dilatation of the pancreatic duct. SPLEEN: Spleen is not enlarged. There are no intrasplenic lesions. Splenic and portal veins are monroy nt. ADRENALS: There are no significant adrenal masses. KIDNEYS: No calculi nor hydronephrosis. No solid renal masses. No cysts evident. ABDOMINAL AORTA: Calcified but not enlarged. LYMPH NODES: There is no retroperitoneal nor paraaortic adenopathy. ABDOMINAL WALL: No evidence of significant anterior abdominal wall nor inguinal hernia. GI: There is no evidence of bowel obstruction. PELVIS: LYMPH NODES: There is no intrapelvic nor inguinal adenopathy. GI: No evidence of appendicitis.No evidence of sigmoid diverticulitis. URINARY BLADDER: No calculi nor masses evident REPRODUCTIVE: Prostate size normal. Seminal vesicles unremarkable. OSSEOUS: Diffusely sclerotic metastatic bone disease noted throughout the lumbar vertebrae and all of the bones of the pelvis, including the sacrum. No lytic lesions. IMPRESSION: 1. Relatively stable appearance of the intrathoracic findings when compared to the prior CT scan of 0 11/01/2024. 2. Diffuse sclerotic osseous metastatic disease again noted exhibiting very little if any significant change. 3. Slight decrease in size of the metastatic appearing lesion in the liver which is in the medial asp ect of the right hepatic lobe. No new additional masses in liver nor elsewhere in the abdomen and pe lvis. 4. There is no ascites. RADIATION DOSE DELIVERED: 661.48mGy.cm Total DLP DATA REPOSITORY: All CT scans at this facility are submitted to the National Radiology Data Registry (NRDR) Dose Index Registry (DIR) with the [employer] (ACR). RADIATION OPTIMIZATION: All CT scans at this facility use at least one of these dose optimization te chniques: automated exposure control; mA and/or kV adjustment per patient size (includes targeted exa ms where dose is matched to clinical indication); or iterative reconstruction.
[2024-12-11] MEDS: Breeza Beverage 473 ML BTL PO ×2 (11:27→11:28)
[2024-12-11] MEDS: Omnipaque 350 MG/ML 50 ML BTL PO (11:29)
[2024-12-11] MEDS: Normal Saline - Diluent 50 ML VIAL IJ (13:23)
[2024-12-11] MEDS: Omnipaque 350 MG/ML 100 ML BTL IJ (13:24)
== END 2024-12-11 01:57 ==
LOC: DI 01:37
PROVIDERS: PCP Nurse Practitioner Family; Visit Provider Internal Medicine Medical Oncology
DX: C34.31 Malignant neoplasm of lower lobe, right bronchus or lung (principal); C79.51 Secondary malignant neoplasm of bone; C79.31 Secondary malignant neoplasm of brain; C78.7 Secondary malignant neoplasm of liver and intrahepatic bile duct
CPT/HCPCS: 74177; 71260; J3490; Q9967

== ENCOUNTER 2024-12-17 11:30 | Outpatient (CLI) | payer MEDICAID, SELFPAY ==
[2024-12-17 11:18] LABS: Abs Immature Grans 0.09 10^3/uL (0.0-0.06); Absolute Basophil Count 0.06 10^3/uL (0.0-0.2); Absolute Lymphocyte Count 2.77 10^3/uL (1.2-3.4); Absolute Monocyte Count 1.34 10^3/uL (0.1-0.8); Basophils % 0.5 %; Eosinophils % 1.6 %; HCT 33.7 % (40.0-50.0); HGB 10.3 g/dL (13.5-17.5); Immature Grans % 0.7 %; Lymphocytes % 22.6 %; MCH 25.4 pg (27.0-33.0); MCHC 30.6 % (32.0-36.0); MCV 83 fL (80-95); Monocytes % 10.9 %; Neutrophils % 63.7 %; RBC 4.06 10^6/uL (4.36-5.78); RDW 19.2 % (11.8-14.1); RDW-SD 57.6 fL; WBC 12.27 10^3/uL (4.4-10.8)
[2024-12-17 11:20] LABS: Absolute Neutrophil Count 7.82 10^3/uL (1.2-6.7)
[2024-12-17 11:43] LABS: ALT 20 U/L (16-63); AST 16 U/L (15-37); Albumin 2.6 g/dL (3.4-5.0); Alkaline Phosphatase 181 U/L (46-116); BUN 13 mg/dL (7-18); Bilirubin, Total 0.3 mg/dL (0.2-1.0); CREATININE 0.8 mg/dL (0.70-1.30); Calcium 8.7 mg/dL (8.5-10.1); Chloride 97 mmol/L (98-107); Estimated GFR 103.87 (mL/min/1.73m2); FREE T4 1.15 ng/dL (0.76-1.46); Glucose 109 mg/dL (74-106); Magnesium 1.8 mg/dL (1.8-2.4); Potassium 4.1 mmol/L (3.5-5.1); Sodium 132 mmol/L (136-145); TSH 2.26 uIU/mL (0.36-3.74); Total Protein 8.1 g/dL (6.4-8.2)
[2024-12-17 12:10] LABS: Platelet Count 725 10^3/uL (130-400)
[2024-12-17 12:11] LABS: Diff Comment PLT Morph Reviewed; MPV 8.9 fL (8.0-11.0)
[2024-12-17 12:12] LABS: RBC Morphology Normal
== END 2024-12-17 11:31 | disposition home or self-care (01) ==
PROVIDERS: PCP Nurse Practitioner Family; Visit Provider Internal Medicine Medical Oncology
DX: C78.7 Secondary malignant neoplasm of liver and intrahepatic bile duct (principal); C34.31 Malignant neoplasm of lower lobe, right bronchus or lung; C79.51 Secondary malignant neoplasm of bone; Z79.899 Other long term (current) drug therapy
CPT/HCPCS: 36415; 80053; 83735; 84439; 84443; 85025

== ENCOUNTER 2025-01-07 03:39 | Outpatient (CLI) | payer MEDICAID, SELFPAY ==
[2025-01-07 14:56] LABS: Abs Immature Grans 0.07 10^3/uL (0.0-0.06); HCT 32.6 % (40.0-50.0); HGB 9.8 g/dL (13.5-17.5); Immature Grans % 0.5 %; MCH 25.9 pg (27.0-33.0); MCHC 30.1 % (32.0-36.0); MCV 86 fL (80-95); MPV 9.3 fL (8.0-11.0); RBC 3.79 10^6/uL (4.36-5.78); RDW 20.4 % (11.8-14.1); RDW-SD 63.7 fL; WBC 13.90 10^3/uL (4.4-10.8)
[2025-01-07 15:13] LABS: Anisocytosis 2+; Microcytosis 1+
[2025-01-07 15:17] LABS: Platelet Count 751 10^3/uL (130-400)
[2025-01-07 15:25] LABS: ALT 17 U/L (16-63); AST 21 U/L (15-37); Albumin 2.6 g/dL (3.4-5.0); Alkaline Phosphatase 162 U/L (46-116); Anion Gap 8.2 mmol/L (3-11); BUN 11 mg/dL (7-18); Bilirubin, Total 0.3 mg/dL (0.2-1.0); CO2 26.8 mmol/L (21.0-32.0); Calcium 8.5 mg/dL (8.5-10.1); Chloride 100 mmol/L (98-107); Estimated GFR 103.87 (mL/min/1.73m2); Glucose 100 mg/dL (74-106); Magnesium 1.8 mg/dL (1.8-2.4); Potassium 4.4 mmol/L (3.5-5.1); Sodium 135 mmol/L (136-145); TSH 1.19 uIU/mL (0.36-3.74); Total Protein 8.3 g/dL (6.4-8.2)
== END 2025-01-07 03:40 | disposition home or self-care (01) ==
PROVIDERS: PCP Nurse Practitioner Family; Visit Provider Nurse Practitioner Family
DX: C34.31 Malignant neoplasm of lower lobe, right bronchus or lung (principal); C79.51 Secondary malignant neoplasm of bone; C78.7 Secondary malignant neoplasm of liver and intrahepatic bile duct; Z79.899 Other long term (current) drug therapy
CPT/HCPCS: 36415; 80053; 83735; 84439; 84443; 85025

== ENCOUNTER 2025-02-04 02:51 | Outpatient (CLI) | payer MEDICAID, SELFPAY ==
[2025-02-04 10:45] LABS: Abs Immature Grans 0.16 10^3/uL (0.0-0.06); HCT 32.1 % (40.0-50.0); HGB 9.6 g/dL (13.5-17.5); Immature Grans % 0.9 %; MCH 25.7 pg (27.0-33.0); MCHC 29.9 % (32.0-36.0); MCV 86 fL (80-95); MPV 9.0 fL (8.0-11.0); Platelet Count 593 10^3/uL (130-400); RBC 3.73 10^6/uL (4.36-5.78); RDW 18.6 % (11.8-14.1); RDW-SD 57.5 fL; WBC 18.26 10^3/uL (4.4-10.8)
[2025-02-04 11:22] LABS: ALT 10 U/L (16-63); AST 18 U/L (15-37); Albumin 2.5 g/dL (3.4-5.0); Alkaline Phosphatase 160 U/L (46-116); Anion Gap 7.1 mmol/L (3-11); BUN 10 mg/dL (7-18); Bilirubin, Total 0.4 mg/dL (0.2-1.0); CO2 26.9 mmol/L (21.0-32.0); Calcium 8.8 mg/dL (8.5-10.1); Chloride 99 mmol/L (98-107); Estimated GFR 100.24 (mL/min/1.73m2); Glucose 116 mg/dL (74-106); Magnesium 2.1 mg/dL (1.8-2.4); Potassium 4.5 mmol/L (3.5-5.1); Sodium 133 mmol/L (136-145); TSH 0.46 uIU/mL (0.36-3.74); Total Protein 9.2 g/dL (6.4-8.2)
== END 2025-02-04 02:52 | disposition home or self-care (01) ==
PROVIDERS: PCP Nurse Practitioner Family; Visit Provider Nurse Practitioner Family
DX: C34.31 Malignant neoplasm of lower lobe, right bronchus or lung (principal); C79.51 Secondary malignant neoplasm of bone; C78.7 Secondary malignant neoplasm of liver and intrahepatic bile duct; Z79.899 Other long term (current) drug therapy
CPT/HCPCS: 36415; 80053; 83735; 84439; 84443; 85025

== ENCOUNTER 2025-02-21 08:03 | Outpatient (CLI) | payer MEDICAID, SELFPAY ==
--- NOTE | 2025-02-21 | DI.CT_ITS ---
Exam(s) CT CHEST W EXAM: CT CHEST W CLINICAL HISTORY: RT LUNG CANCER C34.31 SECONDARY TO BONE C79.51 ASSESS TREATMENT RESPONSE TECHNIQUE: Imaging Protocol: Axial computed tomography images with coronal and sagittal reformatted images were created and reviewed. Computer aided detection (CAD) was utilized. CONTRAST MATERIAL: Intravenous: Omnipaque 350 Contrast volume:70 ml. COMPARISON: CT CT CHEST/ABD/PEL W from 11/01/[address] CHEST/ABD/PEL W from 12/11/2024 FINDINGS: Pulmonary parenchyma: Partial right pneumonectomy with significant right-sided volume loss with mediastinal shift toward the right. Large area of cavitation in the right upper chest appears unchanged. Significant atelectasis as well as bronchiectasis of the right middle lobe and portions of the right lower lobe. There is improved aeration in the right lower lobe. Stable area of scarring at the left lung apex. Emphysematous changes noted with few blebs at the left lung apex. There are a few scattered nodules in the left upper lobe which appear stable. Stable circumscribed nodule at the periphery of the left lower lobe. Tracheobronchial tree: No bronchiectasis or mucous plugging. Mediastinum and Elina: No dominant adenopathy or fluid collection. Pleura: No effusion. No pneumothorax. Heart: The heart is not dilated. Mild coronary artery calcifications are seen. Aorta: Thoracic aorta non-dilated. Mild atherosclerotic changes. Pulmonary arteries: No gross evidence of emboli. Upper abdomen: Similar appearance of low-density lesion in the posterior right lobe of the liver. Bones: Sclerotic metastases again noted in the ribs sternum and multiple vertebral bodies. The size of the lesions appears to be slightly greater when compared with the prior exams. Soft tissues: Unremarkable. IMPRESSION: Improved aeration in residual right lower lobe. Stable cavitation of the left upper chest. Stable right middle lobe/superior right lower lobe atelectasis and bronchiectasis. Stable areas of nodularity in the left lung. Question of increased prominence bony metastatic lesions. Stable lesion in the posterior right lobe of the liver. RADIATION DOSE DELIVERED: Total DLP DATA REPOSITORY: All CT scans at this facility are submitted to the National Radiology Data Registry (NRDR) Dose Index Registry (DIR) with the [employer] (ACR). RADIATION OPTIMIZATION: All CT scans at this facility use at least one of these dose optimization techniques: automated exposure control; mA and/or kV adjustment per patient size (includes targeted exams where dose is matched to clinical indication); or iterative reconstruction.
[2025-02-21] MEDS: Omnipaque 350 MG/ML 100 ML BTL IJ (14:16)
[2025-02-21] MEDS: Normal Saline - Diluent 50 ML VIAL IJ (14:16)
== END 2025-02-21 08:23 ==
LOC: DI 08:04
PROVIDERS: PCP Nurse Practitioner Family; Visit Provider Nurse Practitioner Family
DX: C34.31 Malignant neoplasm of lower lobe, right bronchus or lung (principal); C79.51 Secondary malignant neoplasm of bone
CPT/HCPCS: 71260; J3490

== ENCOUNTER 2025-02-25 04:41 | Outpatient (CLI) | payer MEDICAID, SELFPAY ==
[2025-02-25 13:32] LABS: Abs Immature Grans 0.08 10^3/uL (0.0-0.06); HCT 31.5 % (40.0-50.0); HGB 9.5 g/dL (13.5-17.5); Immature Grans % 0.5 %; MCH 26.5 pg (27.0-33.0); MCHC 30.2 % (32.0-36.0); MCV 88 fL (80-95); MPV 8.7 fL (8.0-11.0); RBC 3.59 10^6/uL (4.36-5.78); RDW 19.2 % (11.8-14.1); RDW-SD 60.0 fL; WBC 14.66 10^3/uL (4.4-10.8)
[2025-02-25 13:57] LABS: Platelet Count 659 10^3/uL (130-400); RBC Morphology Normal
[2025-02-25 14:28] LABS: ALT 16 U/L (16-63); AST 21 U/L (15-37); Albumin 2.6 g/dL (3.4-5.0); Alkaline Phosphatase 144 U/L (46-116); Anion Gap 7.8 mmol/L (3-11); BUN 19 mg/dL (7-18); Bilirubin, Total 0.2 mg/dL (0.2-1.0); CO2 27.2 mmol/L (21.0-32.0); Calcium 9.4 mg/dL (8.5-10.1); Chloride 100 mmol/L (98-107); Estimated GFR 100.24 (mL/min/1.73m2); Glucose 64 mg/dL (74-106); Magnesium 1.9 mg/dL (1.8-2.4); Potassium 4.0 mmol/L (3.5-5.1); Sodium 135 mmol/L (136-145); TSH 2.22 uIU/mL (0.36-3.74); Total Protein 9.0 g/dL (6.4-8.2)
== END 2025-02-25 04:42 | disposition home or self-care (01) ==
LOC: LBO 04:41
PROVIDERS: PCP Nurse Practitioner Family; Visit Provider Nurse Practitioner Family
DX: C34.31 Malignant neoplasm of lower lobe, right bronchus or lung (principal); C79.51 Secondary malignant neoplasm of bone; C78.7 Secondary malignant neoplasm of liver and intrahepatic bile duct; Z79.899 Other long term (current) drug therapy
CPT/HCPCS: 36415; 80053; 83735; 84439; 84443; 85025

== ENCOUNTER 2025-03-26 00:39 | Outpatient (CLI) | payer MEDICAID, SELFPAY ==
[2025-03-26 12:02] LABS: Abs Immature Grans 0.06 10^3/uL (0.0-0.06); HCT 35.8 % (40.0-50.0); HGB 11.1 g/dL (13.5-17.5); Immature Grans % 0.4 %; MCH 27.5 pg (27.0-33.0); MCHC 31.0 % (32.0-36.0); MCV 89 fL (80-95); MPV 8.9 fL (8.0-11.0); Platelet Count 497 10^3/uL (130-400); RBC 4.04 10^6/uL (4.36-5.78); RDW 19.4 % (11.8-14.1); RDW-SD 62.4 fL; WBC 13.60 10^3/uL (4.4-10.8)
[2025-03-26 13:04] LABS: ALT 16 U/L (16-63); AST 22 U/L (15-37); Albumin 2.8 g/dL (3.4-5.0); Alkaline Phosphatase 150 U/L (46-116); Anion Gap 9.9 mmol/L (3-11); BUN 12 mg/dL (7-18); Bilirubin, Total 0.4 mg/dL (0.2-1.0); CO2 28.1 mmol/L (21.0-32.0); Calcium 10.1 mg/dL (8.5-10.1); Chloride 98 mmol/L (98-107); Estimated GFR 100.24 (mL/min/1.73m2); Glucose 100 mg/dL (74-106); Magnesium 1.8 mg/dL (1.8-2.4); Potassium 4.2 mmol/L (3.5-5.1); Sodium 136 mmol/L (136-145); TSH 1.15 uIU/mL (0.36-3.74); Total Protein 9.6 g/dL (6.4-8.2)
== END 2025-03-26 00:40 | disposition home or self-care (01) ==
LOC: LBO 00:39
PROVIDERS: PCP Nurse Practitioner Family; Visit Provider Nurse Practitioner Family
DX: C34.31 Malignant neoplasm of lower lobe, right bronchus or lung (principal); C79.51 Secondary malignant neoplasm of bone; C78.7 Secondary malignant neoplasm of liver and intrahepatic bile duct
CPT/HCPCS: 36415; 80053; 83735; 84439; 84443; 85025

== ENCOUNTER 2025-04-22 03:50 | Outpatient (CLI) | payer MEDICAID, SELFPAY ==
[2025-04-22 08:59] LABS: Abs Immature Grans 0.05 10^3/uL (0.0-0.06); HCT 34.6 % (40.0-50.0); HGB 10.8 g/dL (13.5-17.5); Immature Grans % 0.4 %; MCH 28.1 pg (27.0-33.0); MCHC 31.2 % (32.0-36.0); MCV 90 fL (80-95); MPV 8.9 fL (8.0-11.0); Platelet Count 534 10^3/uL (130-400); RBC 3.84 10^6/uL (4.36-5.78); RDW 18.0 % (11.8-14.1); RDW-SD 59.4 fL; WBC 12.01 10^3/uL (4.4-10.8)
[2025-04-22 09:26] LABS: ALT 16 U/L (16-63); AST 22 U/L (15-37); Albumin 2.7 g/dL (3.4-5.0); Alkaline Phosphatase 172 U/L (46-116); Anion Gap 7.4 mmol/L (3-11); BUN 24 mg/dL (7-18); Bilirubin, Total 0.3 mg/dL (0.2-1.0); CO2 28.6 mmol/L (21.0-32.0); Calcium 10.1 mg/dL (8.5-10.1); Chloride 98 mmol/L (98-107); Estimated GFR 88.33 (mL/min/1.73m2); Glucose 117 mg/dL (74-106); Magnesium 2.1 mg/dL (1.8-2.4); Potassium 5.0 mmol/L (3.5-5.1); Sodium 134 mmol/L (136-145); TSH 1.48 uIU/mL (0.36-3.74); Total Protein 9.7 g/dL (6.4-8.2)
== END 2025-04-22 03:51 | disposition home or self-care (01) ==
LOC: LBO 03:50
PROVIDERS: PCP Nurse Practitioner Family; Visit Provider Nurse Practitioner Family
DX: C34.31 Malignant neoplasm of lower lobe, right bronchus or lung (principal); C79.51 Secondary malignant neoplasm of bone; C78.7 Secondary malignant neoplasm of liver and intrahepatic bile duct; Z79.899 Other long term (current) drug therapy
CPT/HCPCS: 36415; 80053; 83735; 84439; 84443; 85025

== ENCOUNTER 2025-05-20 02:02 | Outpatient (CLI) | payer MEDICAID, SELFPAY ==
[2025-05-20 11:39] LABS: Abs Immature Grans 0.05 10^3/uL (0.0-0.06); HCT 34.1 % (40.0-50.0); HGB 10.4 g/dL (13.5-17.5); Immature Grans % 0.4 %; MCH 27.0 pg (27.0-33.0); MCHC 30.5 % (32.0-36.0); MCV 89 fL (80-95); MPV 8.9 fL (8.0-11.0); Platelet Count 521 10^3/uL (130-400); RBC 3.85 10^6/uL (4.36-5.78); RDW 16.5 % (11.8-14.1); RDW-SD 52.8 fL; WBC 12.13 10^3/uL (4.4-10.8)
[2025-05-20 11:51] LABS: Magnesium 2.0 mg/dL (1.6-2.6)
[2025-05-20 11:53] LABS: ALT 12 U/L (10-49); AST 20 U/L (<34); Albumin 3.9 g/dL (3.4-5.0); Alkaline Phosphatase 154 U/L (46-116); Anion Gap 5.3 mmol/L (3-11); BUN 18 mg/dL (9-23); Bilirubin, Total 0.30 mg/dL (0.2-1.2); CO2 28.0 mmol/L (20.0-31.0); Calcium 9.1 mg/dL (8.3-10.6); Chloride 100 mmol/L (98-107); Glucose 105 mg/dL (74-106); Potassium 4.3 mmol/L (3.5-5.1); Sodium 133 mmol/L (136-145); Total Protein 9.5 g/dL (5.7-8.2)
[2025-05-20 11:56] LABS: TSH 1.60 uIU/mL (0.55-4.78)
== END 2025-05-20 02:03 | disposition home or self-care (01) ==
LOC: LBO 02:02
PROVIDERS: PCP Nurse Practitioner Family; Visit Provider Nurse Practitioner Family
DX: C34.31 Malignant neoplasm of lower lobe, right bronchus or lung (principal); C79.51 Secondary malignant neoplasm of bone; C78.7 Secondary malignant neoplasm of liver and intrahepatic bile duct; Z79.899 Other long term (current) drug therapy
CPT/HCPCS: 36415; 80053; 83735; 84439; 84443; 85025

== ENCOUNTER → 2025-05-22 02:10 | Outpatient (CLI) | payer MEDICAID, SELFPAY ==
--- NOTE | 2025-05-22 | DI.MRI_ITS ---
Exam(s) MR BRAIN WO/W EXAM: MR BRAIN WO/W CLINICAL HISTORY: NSCLC with brain mets, monitoring C34.31,C79.31 TECHNIQUE: Multiplanar multisequence MRI of the brain was performed. Both noninfused and contrast infused sequences were performed. IV Contrast injected was 13 cc Dotarem. COMPARISON: MR MR BRAIN WO/W from 05/01/2024 MR MR BRAIN WO/W from 10/16/2024 FINDINGS: CEREBRAL PARENCHYMA: No evidence of intracranial hemorrhage, mass effect nor shift of midline structure. No extraaxial fluid collections. Ventricles are not enlarged nor shifted. There is no significant focal signal abnormality in the cerebellar hemispheres nor within the олег, midbrain, and thalami. There is no abnormal signal abnormality in the periventricular white matter. There is, however, again noted a solitary focus of FLAIR bright signal abnormality in the high left parietal subcortical white matter measuring 1.0 by 0.6 cm by 1.4 cm, unchanged. This was apparently an area of prior metastatic lesion.. There is no associated hemorrhage, surrounding edema nor enhancement at this level and there is no associated restricted diffusion at this level.. DWI: No areas of restricted diffusion to suggest acute ischemic event. SWI: Susceptibility artifact in the right frontal lobe is unchanged from previous There are no new ring enhancing lesions in the brain. There is no new abnormal meningeal enhancement. PITUITARY GLAND: No mass nor parasellar abnormality. No obvious abnormality in the cavernous sinuses. FLOW VOIDS: The expected flow void are noted. No evidence of obvious aneurysm nor obvious vascular malformation. PARANASAL SINUSES: Some mucosal thickening is noted in the right maxillary sinus. Left maxillary sinus is clear. There are no fluid levels in either maxillary sinus and the frontal sinuses are clear as are either oil air cells. Some mucosal thickening is noted in the left side of the sphenoid sinus which is unchanged. ORBITS: No obvious abnormal findings. IMPRESSION: 1. Findings are stable/unchanged when compared to MRI scan of October 2024. 2. No evidence of new metastatic disease in the brain. There are no ring enhancing lesions in the brain and there is no abnormal meningeal enhancement. DATA REPOSITORY:
[2025-05-22] MEDS: Gadoterate meglumine 20 ML SYRINGE IVP (12:12)
[2025-05-22] MEDS: Normal Saline Flush 10 ML SYR IVP (12:13)
== END ==
LOC: DI 02:10
PROVIDERS: PCP Nurse Practitioner Family; Visit Provider Nurse Practitioner Family
DX: C34.31 Malignant neoplasm of lower lobe, right bronchus or lung (principal); C79.31 Secondary malignant neoplasm of brain
CPT/HCPCS: 70553

== ENCOUNTER 2025-06-17 00:42 | Outpatient (CLI) | payer MEDICAID, SELFPAY ==
[2025-06-17 09:51] LABS: Abs Immature Grans 0.04 10^3/uL (0.0-0.06); HCT 35.3 % (40.0-50.0); HGB 10.9 g/dL (13.5-17.5); Immature Grans % 0.4 %; MCH 27.6 pg (27.0-33.0); MCHC 30.9 % (32.0-36.0); MCV 89 fL (80-95); MPV 9.2 fL (8.0-11.0); Platelet Count 454 10^3/uL (130-400); RBC 3.95 10^6/uL (4.36-5.78); RDW 17.0 % (11.8-14.1); RDW-SD 55.2 fL; WBC 10.86 10^3/uL (4.4-10.8)
[2025-06-17 10:09] LABS: Magnesium 1.8 mg/dL (1.6-2.6)
[2025-06-17 10:10] LABS: ALT 9 U/L (10-49); AST 19 U/L (<34); Albumin 3.7 g/dL (3.2-5.0); Alkaline Phosphatase 127 U/L (46-116); Anion Gap 7.1 mmol/L (3-11); BUN 20 mg/dL (9-23); Bilirubin, Total 0.3 mg/dL (0.2-1.2); CO2 27.9 mmol/L (20.0-31.0); Calcium 9.0 mg/dL (8.3-10.6); Chloride 101 mmol/L (98-107); Glucose 120 mg/dL (74-106); Potassium 4.7 mmol/L (3.5-5.1); Sodium 136 mmol/L (136-145); Total Protein 8.8 g/dL (5.7-8.2)
[2025-06-17 10:13] LABS: TSH 1.17 uIU/mL (0.55-4.78)
== END 2025-06-17 00:43 | disposition home or self-care (01) ==
LOC: LBO 00:42
PROVIDERS: PCP Nurse Practitioner Family; Visit Provider Nurse Practitioner Family
DX: C34.31 Malignant neoplasm of lower lobe, right bronchus or lung (principal); C79.51 Secondary malignant neoplasm of bone; C78.7 Secondary malignant neoplasm of liver and intrahepatic bile duct
CPT/HCPCS: 36415; 80053; 83735; 84439; 84443; 85025